=== PATIENT | female | born 1955 | race Hispanic/Latino ===

== ENCOUNTER 2018-03-16 23:15 | Observation (INO) | payer OTHER ==
[2018-03-17 00:25] LABS: Absolute Lymphocytes (CBC) 1.7 K/uL (0.7-4.9); Absolute Monocytes 0.6 K/uL (0.1-1.3); Absolute Neutrophil 3.9 K/uL (1.8-8.0); Basophils % 0.3 % (0-1.3); Eosinophils % 2.9 % (0-4.4); Hematocrit 36.8 % (36.0-45.0); Lymphocytes % 26.3 % (15.3-44.8); MCH 30.1 pg (27.0-35.0); MCV 88.6 fL (80-100); MPV 10.1 fL (7.6-11.3); Monocytes % 9.2 % (3.3-12.3); RBC Red Blood Cell Count 4.16 M/uL (3.86-4.86)
[2018-03-17 00:29] LABS: Protime INR 1.14
[2018-03-17 00:48] LABS: Urine Bacteria <20 /HPF (<20); Urine Culture Reflex Order NOT NEEDED; Urine RBC <5 /HPF (NONE SEEN)
[2018-03-17 00:52] LABS: ALT/SGPT 27 U/L (12-78); AST/SGOT 24 U/L (15-37); Albumin 3.4 g/dL (3.4-5.0); Alkaline Phosphatase 122 U/L (45-117); BUN Blood Urea Nitrogen 14 mg/dL (7-18); Bicarbonate 27 mmol/L (21-32); Bilirubin Direct 0.1 mg/dL (0-0.2); Bilirubin Total 0.4 mg/dL (0.2-1.0); CKMB Creatine Kinase MB 1.9 ng/mL (0.3-3.6); Creatine Phosphokinase 212 U/L (26-192); Glucose Level 148 mg/dL (74-106); Lipase 103 U/L (73-393); Potassium 4.2 mmol/L (3.5-5.1); Protein, Total 7.9 g/dL (6.4-8.2); Sodium Level 138 mmol/L (136-145); Troponin (Emerg Dept Use Only) < 0.02 ng/mL (0.0-0.045)
[2018-03-17 01:42] LABS: Urine Blood TRACE (NEG); Urine Glucose NEGATIVE (NEG); Urine Protein NEGATIVE (NEG); Urine pH 5.5 (5.0-7.0)
[2018-03-17] MEDS ORDERED: ENOXAPARIN 100 MG/ML SYR SQ ONE (01:54)
[2018-03-17] MEDS ORDERED: HYDROCORTISONE SUC 100 MG INJ IV ONE ×2 (02:29→10:20)
[2018-03-17] MEDS ORDERED: ACETAMINOPHEN 500 MG TAB PO PRN (02:29)
[2018-03-17] MEDS ORDERED: ONDANSETRON 4 MG/2 ML VIAL IV PRN (02:29)
[2018-03-17] MEDS ORDERED: MORPHINE 4 MG/ML SYR IV PRN (02:29)
--- NOTE | 2018-03-17 02:32 | ER ---
Nurse's Notes [facility] Name: Sandra Rogers Age: 62 yrs Sex: Female : 1955 Arrival Date: 03/16/2018 Time: 23:15 Bed 30 Private MD: CHARIS MERCADO Diagnosis: Edema, unspecified;Cellulitis of right lower limb;Cellulitis of left lower limb Presentation: 03/16 23:35 Presenting complaint: Patient states: that she had vein surg 2 weeks ago on both her lower legs. Yesterday they started to turn red, warm and are painful. She has also been running fever. Transition of care: patient was not received from another setting of care. Onset of symptoms was March 15, 2018. Risk Assessment: Do you want to hurt yourself or someone else? Patient reports no desire to harm self or others. Initial Sepsis Screen: Does the patient meet any 2 criteria? No. Patient's initial sepsis screen is negative. Does the patient have a suspected source of infection? No. Patient's initial sepsis screen is negative. Care prior to arrival: None. 23:35 Method Of Arrival: Wheelchair 23:35 Acuity: STARR 3 fc Historical: - Allergies: 23:39 No Known Allergies; fc - Home Meds: 23:39 pioglitazone 30 mg oral tab 1 tab once daily [Active]; Kombiglyze XR 5-1,000 mg oral fc TM24 1 tab once daily [Active]; lisinopril 20 mg Oral tab 1 tab twice a day [Active]; levothyroxine 88 mcg tab 1 tab once daily [Active]; gabapentin 100 mg oral cap 1 caps 3 times per day [Active]; - PMHx: 23:39 Diabetes - IDDM; Hypertension; Hypothyroidism; fatty liver; Peripheral Neuropathy; fc - PSHx: 23:39 ; Vein surg; fc - Immunization history:: Last tetanus immunization: unknown, Flu vaccine is not up to date. - Social history:: Smoking status: Patient/guardian denies using tobacco, Patient/guardian denies using alcohol, street drugs. - Ebola Screening: : Patient negative for fever greater than or equal to 101.5 degrees Fahrenheit, and additional compatible Ebola Virus Disease symptoms Patient denies exposure to infectious person Patient denies travel to an Ebola-affected area in the 21 days before illness onset. Screenin:37 Abuse screen: Denies threats or abuse. Nutritional screening: No deficits noted. fc Tuberculosis screening: No symptoms or risk factors identified. Fall Risk None identified. Assessment: 23:45 General: Appears in no apparent distress. comfortable, Behavior is calm, cooperative. mg2 Pain: Complains of pain in both legs Pain does not radiate. Pain currently is 4 out of 10 on a pain scale. Quality of pain is described as aching, Pain began gradually, 1 day ago. Is intermittent. Neuro: Level of Consciousness is awake, alert, obeys commands, Oriented to person, place, time, situation. Cardiovascular: Capillary refill Patient's skin is warm and dry. Respiratory: Airway is patent Respiratory effort is even, unlabored, Respiratory pattern is regular, symmetrical. GI: No signs and/or symptoms were reported involving the gastrointestinal system. : No signs and/or symptoms were reported regarding the genitourinary system. EENT: No signs and/or symptoms were reported regarding the EENT system. Derm: Skin is intact, Skin is red. Musculoskeletal: Circulation, motion, and sensation intact. Swelling present in both legs and ankles. 03/17 01:53 Reassessment: Patient appears in no apparent distress at this time. Patient and/or mg2 family updated on plan of care and expected duration. Pain level reassessed. Patient is alert, oriented x 3, equal unlabored respirations, skin warm/dry/pink. 02:56 Reassessment: Patient appears in no apparent distress at this time. Patient and/or mg2 family updated on plan of care and expected duration. Pain level reassessed. Patient is alert, oriented x 3, equal unlabored respirations, skin warm/dry/pink. 03:02 Reassessment: Patient appears in no apparent distress at this time. Patient and/or cc3 family updated on plan of care and expected duration. Pain level reassessed. Patient is alert, oriented x 3, equal unlabored respirations, skin warm/dry/pink. Received patient from WILY Queen as a case of cellulitis of bilateral lower limbs for admission, awaiting room availability. 03:35 Reassessment: Patient appears in no apparent distress at this time. Patient and/or cc3 family updated on plan of care and expected duration. Pain level reassessed. Patient is alert, oriented x 3, equal unlabored respirations, skin warm/dry/pink. Room assigned to 428, report handed over to WILY Bower. 03:45 Reassessment: Patient left ER for admission vitally stable by wheelchair escorted by RN.cc3 Vital Signs: 03/16 23:35 BP 133 / 71; Pulse 75; Resp 18; Temp 98.8(O); Pulse Ox 97% on R/A; Weight 108.86 kg fc (R); Height 5 ft. 4 in. (162.56 cm) (R); Pain 8/10; 03/17 00:33 Pulse 75; mg2 00:47 BP 125 / 71; Pulse 74; Resp 18; Pulse Ox 100% on R/A; mg2 01:53 BP 155 / 75; Pulse 77; Resp 18; Pulse Ox 100% on R/A; Pain 0/10; mg2 02:45 BP 117 / 54; Pulse 71; Resp 18 S; Pulse Ox 97% on R/A; cc3 03:18 BP 131 / 72; Pulse 73; Resp 18 S; Pulse Ox 97% on R/A; cc3 03/16 23:35 Body Mass Index 41.20 (108.86 kg, 162.56 cm) fc 00:33 right and left pedal pulses by doppler mg2 ED Course: 03/16 23:15 Patient arrived in ED. ds1 23:16 CHARIS MERCADO is Private Physician. ds1 23:20 [facility] cp 23:20 Adolph Guerrero MD is Attending Physician. cp 23:35 Arm band placed on Patient placed in an exam room, on a stretcher. fc 23:37 Triage completed. fc 23:37 Patient has correct armband on for positive identification. Bed in low position. Call fc light in reach. Pulse ox on. NIBP on. 23:37 No provider procedures requiring assistance completed. fc 23:38 Bret Dubon, WILY is Primary Nurse. mg2 23:56 X-ray completed. Portable x-ray completed in exam room. Patient tolerated procedure kw well. 23:57 Chest Single View XRAY In Process Unspecified. EDMS 03/17 00:12 Inserted saline lock: 20 gauge in left antecubital area, using aseptic technique. Blood mg2 collected. 01:39 Notified Nurse Practitioner and/or Physician Estate Conservator of a critical lab result(s), lp1 D-Dimer 1111. 02:30 Antonieta Adame MD is Hospitalizing Provider. cp 03:35 Patient admitted, IV remains in place. cc3 Administered Medications: 01:52 Drug: Lovenox 1 mg/kg Route: Sub-Q; Site: right lower abdomen; mg2 02:36 Follow up: Response: No adverse reaction mg2 Point of Care Testing: Blood Glucose: 00:33 Blood Glucose: 174 mg/dL; mg2 Ranges: Outcome: 02:31 Decision to Hospitalize by Provider. cp 03:35 Admitted to Tele accompanied by nurse, via wheelchair, room 428, with chart, Report cc3 called to WILY Bower 03:35 Condition: stable 03:35 Instructed on the need for admit. 03:50 Patient left the ED. cc3 Signatures: Dispatcher [employer] EDMS Mervat Virgen RN RN fc Sanford, Demi dsBreanne Moncada Laura, RN RN lp1 Adolph Witt PA PA Bret Resendiz RN RN mg2 Bela Shepherd cc3 Corrections: (The following items were deleted from the chart) 03:06 03:02 Reassessment: Patient appears in no apparent distress at this time. Patient cc3 and/or family updated on plan of care and expected duration. Pain level reassessed. Patient is alert, oriented x 3, equal unlabored respirations, skin warm/dry/pink. Received patient from WILY Queen as a case of leg pain and swelling for admission, awaiting room availability. cc3
--- NOTE | 2018-03-17 02:32 | EDPHYS ---
Physician Documentation [facility] Name: Sandra Rogers Age: 62 yrs Sex: Female : 1955 Arrival Date: 03/16/2018 Time: 23:15 Bed 30 Private MD: CHARIS MERCADO ED Physician Adolph Guerrero HPI: 03/16 23:30 This 62 yrs old Female presents to ER via Unassigned with complaints of Leg cp Pain, Leg Swelling. 23:30 The patient presents with pain, that is acute, swelling, tenderness. The complaints cp affect the right lower leg and left lower leg. Onset: The symptoms/episode began/occurred yesterday. 23:30 Associated signs and symptoms: Pertinent positives: calf tenderness, fever, warmth, cp Pertinent negatives numbness, weakness. Treatment prior to arrival includes: no previous treatment. Son who is interpreting reports patient having vein removal surgery with anesthesia 2 weeks in [facility] to bilateral lower legs. Historical: - Allergies: 23:39 No Known Allergies; fc - Home Meds: 23:39 pioglitazone 30 mg oral tab 1 tab once daily [Active]; Kombiglyze XR 5-1,000 mg oral fc TM24 1 tab once daily [Active]; lisinopril 20 mg Oral tab 1 tab twice a day [Active]; levothyroxine 88 mcg tab 1 tab once daily [Active]; gabapentin 100 mg oral cap 1 caps 3 times per day [Active]; - PMHx: 23:39 Diabetes - IDDM; Hypertension; Hypothyroidism; fatty liver; Peripheral Neuropathy; fc - PSHx: 23:39 ; Vein surg; fc - Immunization history:: Last tetanus immunization: unknown, Flu vaccine is not up to date. - Social history:: Smoking status: Patient/guardian denies using tobacco, Patient/guardian denies using alcohol, street drugs. - Ebola Screening: : Patient negative for fever greater than or equal to 101.5 degrees Fahrenheit, and additional compatible Ebola Virus Disease symptoms Patient denies exposure to infectious person Patient denies travel to an Ebola-affected area in the 21 days before illness onset. ROS: 23:35 Constitutional: Negative for body aches, chills, fever, poor PO intake. cp 23:35 Eyes: Negative for injury, pain, redness, and discharge. cp 23:35 Neck: Negative for pain with movement, pain at rest, stiffness, swollen nodes. 23:35 Cardiovascular: Negative for chest pain, palpitations. 23:35 Respiratory: Negative for cough, shortness of breath, wheezing. 23:35 Abdomen/GI: Negative for abdominal pain, nausea, vomiting, and diarrhea, anorexia, black/tarry stool, rectal bleeding. 23:35 Back: Negative for pain at rest, pain with movement, radiated pain. 23:35 : Negative for urinary symptoms. 23:35 MS/extremity: Positive for erythema, pain, swelling, tenderness, warmth, of the right lower leg and left lower leg, Negative for injury or acute deformity, decreased range of motion, paresthesias. 23:35 Neuro: Negative for altered mental status, headache, numbness, syncope, near syncope, weakness. 23:35 All other systems are negative. Exam: 23:45 Head/Face: Normocephalic, atraumatic. cp 23:45 Constitutional: The patient appears in no acute distress, alert, awake, non-diaphoretic, non-toxic, well developed, well nourished, obese. 23:45 Eyes: Periorbital structures: appear normal, Conjunctiva: normal, no exudate, no injection, Sclera: no appreciated abnormality, Lids and lashes: appear normal, bilaterally. 23:45 ENT: External ear(s): are unremarkable, Nose: is normal, Mouth: Lips: moist, Oral mucosa: pink and intact, moist, Posterior pharynx: is normal, airway is patent, no erythema, no exudate, Voice: is normal. 23:45 Neck: ROM/movement: is normal, is supple, without pain, no range of motions limitations, no nuchal rigidity. 23:45 Chest/axilla: Inspection: normal, Palpation: is normal, no crepitus, no tenderness. 23:45 Cardiovascular: Rate: normal, Rhythm: regular, Pulses: Pulses are 2+ in right radial artery, right dorsalis pedis artery, left radial artery and left dorsalis pedis artery. Edema: mild bilateral lower legs, JVD: is not appreciated. 23:45 Respiratory: the patient does not display signs of respiratory distress, Respirations: normal, no use of accessory muscles, no retractions, no splinting, no tachypnea, labored breathing, is not present, Breath sounds: are clear throughout, no decreased breath sounds, no stridor, no wheezing. 23:45 Abdomen/GI: Inspection: obese Bowel sounds: active, all quadrants, Palpation: abdomen is soft and non-tender, in all quadrants, rebound tenderness, is not appreciated, involuntary guarding, is not appreciated. 23:45 Musculoskeletal/extremity: Extremities: grossly normal except: noted in the right lower cp leg and left lower leg: erythema, swelling, tenderness, increased warmth, ROM: intact in all extremities, Pulses: noted to be 2+ in the right dorsalis pedis artery and left dorsalis pedis artery, Calf tenderness, bilaterally, Sensation intact. 23:45 Neuro: Orientation: to person, place \T\ time. Mentation: lucid, able to follow commands, Cerebellar function: is grossly normal, Motor: moves all fours, Sensation: no obvious gross deficits. 03/17 00:25 ECG was reviewed by the Attending Physician. cp Vital Signs: 03/16 23:35 BP 133 / 71; Pulse 75; Resp 18; Temp 98.8(O); Pulse Ox 97% on R/A; Weight 108.86 kg fc (R); Height 5 ft. 4 in. (162.56 cm) (R); Pain 8/10; 03/17 00:33 Pulse 75; mg2 00:47 BP 125 / 71; Pulse 74; Resp 18; Pulse Ox 100% on R/A; mg2 01:53 BP 155 / 75; Pulse 77; Resp 18; Pulse Ox 100% on R/A; Pain 0/10; mg2 02:45 BP 117 / 54; Pulse 71; Resp 18 S; Pulse Ox 97% on R/A; cc3 03:18 BP 131 / 72; Pulse 73; Resp 18 S; Pulse Ox 97% on R/A; cc3 03/16 23:35 Body Mass Index 41.20 (108.86 kg, 162.56 cm) fc 00:33 right and left pedal pulses by doppler mg2 MDM: 03/16 23:20 Patient medically screened. cp 23:30 Differential diagnosis: cellulitis, DVT, abscess, sepsis. cp 03/17 01:49 Data reviewed: vital signs, nurses notes, lab test result(s), EKG, radiologic studies, cp plain films. Physician consultation: Antonieta Adame MD was called at 01:40, was contacted at 01:40, regarding admission, patient's condition, and will see patient in ED. 03/16 23:32 Order name: Basic Metabolic Panel 03/16 23:32 Order name: Blood Culture Adult (2) 03/16 23:32 Order name: CBC with Diff 03/16 23:32 Order name: Ckmb 03/16 23:32 Order name: CPK 03/16 23:32 Order name: Lactate; Complete Time: 01:11 03/16 23:32 Order name: LFT's; Complete Time: 01:11 03/16 23:32 Order name: Lipase; Complete Time: 01:11 03/16 23:32 Order name: Procalcitonin; Complete Time: 01:11 03/16 23:32 Order name: Protime (+inr); Complete Time: 01:41 03/17 00:47 Interpretation: Reviewed. 03/16 23:32 Order name: Ptt, Activated; Complete Time: 01:41 03/16 23:32 Order name: Troponin (emerg Dept Use Only); Complete Time: 01:11 03/16 23:32 Order name: Urine Microscopic Only; Complete Time: 01:11 03/16 23:32 Order name: Basic Metabolic Panel; Complete Time: 01:11 EDNH 03/16 23:32 Order name: Chest Single View XRAY 03/16 23:32 Order name: Accucheck; Complete Time: 00:11 03/16 23:32 Order name: Cardiac monitoring; Complete Time: 00:11 03/16 23:32 Order name: Blood Culture EDNH 03/16 23:32 Order name: CBC with Automated Diff; Complete Time: 00:47 EDMS 03/17 00:47 Interpretation: Normal except: PLT 128. 03/16 23:32 Order name: CKMB Creatine Kinase MB; Complete Time: 01:11 EDNH 03/16 23:32 Order name: Creatine Phosphokinase; Complete Time: 01:11 EDMS 03/17 01:11 Interpretation: Abnormal: CPK 212. 03/17 00:33 Order name: Urine Dipstick--Ancillary (enter results) ms 03/17 01:21 Order name: LAB Add On cp 03/17 01:26 Order name: D-Dimer; Complete Time: 01:41 EDMS 03/17 02:35 Order name: CONS Pharmacy Consult EDMS 03/17 02:35 Order name: CONS Pharmacy Consult EDMS 03/17 02:35 Order name: Consistent Carb (ADA) 1800 Michael EDMS 03/17 02:35 Order name: Extrem Venous W Compress Adiel EDMS 03/16 23:32 Order name: EKG - Nurse/Tech; Complete Time: 00:33 cp 03/16 23:32 Order name: IV Saline Lock - Large Bore; Complete Time: 00:11 cp 03/16 23:32 Order name: Labs collected and sent; Complete Time: 00:11 cp 03/16 23:32 Order name: O2 Per Protocol; Complete Time: 00:11 cp 03/16 23:32 Order name: O2 Sat Monitoring; Complete Time: 00:11 cp 03/16 23:32 Order name: Urine Dipstick-Ancillary (obtain specimen); Complete Time: 00:33 cp 03/16 23:48 Order name: Misc. Order: bilateral lower extremity doppler pulses; Complete Time: 00:33 cp EC:25 Rate is 74 beats/min. Rhythm is regular. OR interval is normal. QRS interval is cp prolonged at 104 msec. QT interval is normal. Interpreted by me. Reviewed by me. Administered Medications: 01:52 Drug: Lovenox 1 mg/kg Route: Sub-Q; Site: right lower abdomen; mg2 02:36 Follow up: Response: No adverse reaction mg2 Point of Care Testing: Blood Glucose: 00:33 Blood Glucose: 174 mg/dL; mg2 Ranges: Critical Glucose Levels:Adult <50 mg/dl or >400 mg/dl <40 mg/dl or >180 mg/dl Disposition: 06:44 Co-signature as Attending Physician, Adolph Guerrero MD I agree with the assessment and [facility] plan of care. Disposition: 03/17/18 02:31 Hospitalization ordered by Antonieta Adame for Observation. Preliminary diagnosis are Edema, unspecified, Cellulitis of right lower limb, Cellulitis of left lower limb. - Bed requested for Telemetry/MedSurg (observation). - Status is Observation. cc3 - Condition is Stable. - Problem is new. - Symptoms have improved. UTI on Admission? No Signatures: Dispatcher [employer] [facility] Larissa Garzon RN RN mw Anderson, Corey, MD MD cha Chretien, Felicia, RN RN fc Adolph Witt PA PA cp Bret Dubon, WILY RN mg2 Bela Shepherd cc3 Corrections: (The following items were deleted from the chart) 01: 01:20 D-DIMER+COAG.LAB.BRZ ordered. EDMS EDMS 03:22 02:31 Hospitalization Ordered by Antonieta Adame MD for Observation. Preliminary mw diagnosis is Edema, unspecified; Cellulitis of right lower limb; Cellulitis of left lower limb. Bed requested for Telemetry/MedSurg (observation). Status is Observation. Condition is Stable. Problem is new. Symptoms have improved. UTI on Admission? No. cp 03:50 03:22 03/17/2018 02:31 Hospitalization Ordered by Antonieta Adame MD for Observation. cc3 Preliminary diagnosis is Edema, unspecified; Cellulitis of right lower limb; Cellulitis of left lower limb. Bed requested for Telemetry/MedSurg (observation). Status is Observation. Condition is Stable. Problem is new. Symptoms have improved. UTI on Admission? No. mw
[2018-03-17] MEDS ORDERED: NA CHLORIDE 0.9% 1,000 ML IV SCH (03:00)
[2018-03-17 04:01] VITALS: O2SAT 97
[2018-03-17] MEDS ORDERED: VANCOMYCIN 1 GM/VIAL ONE (04:56)
[2018-03-17] MEDS ORDERED: NA CHLORIDE 0.9% 500 ML ONE (04:57)
[2018-03-17] MEDS ORDERED: VANCOMYCIN 2 GM in NA CHLORIDE 0.9% 500 ML IVPB SCH (05:00)
[2018-03-17 05:30] VITALS: BMI 39.6
[2018-03-17] MEDS: AMPICILLIN/SULBACT 3 GM in NA CHLORIDE 0.9% 100 ML IVPB SCH ×2 (06:00→11:13)
[2018-03-17] MEDS ORDERED: AMPICILLIN/SULBACTAM 3GM/VIAL ONE (06:11)
[2018-03-17] MEDS ORDERED: NA CHLORIDE 0.9% 100 ML IV ONE (06:50)
--- NOTE | 2018-03-17 07:40 | EKG ---
Test Date: 2018-03-17 Test Time: 00:22:13 Gunstock Repairer: MEASUREMENT RESULTS: Intervals: Rate: 74 OH: 164 QRSD: 104 QT: 374 QTc: 415 [place]: P: 35 OH: 164 QRS: -58 T: 19 INTERPRETIVE STATEMENTS: Normal sinus rhythm Left anterior fascicular block Abnormal ECG Compared to ECG 08/04/2016 10:58:26 No significant changes Electronically Signed On 03-17-18 07:40:05 CDT by Abram Mireles
[2018-03-17] MEDS ORDERED: INFLUENZA VACCINE (for 3y+) 0.5 ML DOSE IMVAC ONE (08:00)
--- NOTE | 2018-03-17 08:36 | P.HP ---
Certification for Inpatient Patient admitted to: Observation With expected LOS: <2 Midnights Patient will require the following post-hospital care: None Practitioner: I am a practitioner with admitting privileges, knowledge of patient current condition, hospital course, and medical plan of care. Services: Services provided to patient in accordance with Admission requirements found in Title 42 Section 412.3 of the Code of Federal Regulations Patient History Date of Service: 03/17/18 Reason for admission: Erythema of the lower extremities History of Present Illness: Patient is a 62-year-old female who presents to the emergency room with bilateral lower extremity erythema. Patient had vein stripping performed a couple of weeks ago. Patient noticed erythema a couple of days ago which is got worse. She came into the emergency room and there was concerned had she had bilateral lower extremity cellulitis versus DVT. Her D-dimer was elevated. Patient will be admitted to the hospital for further evaluation. Allergies No Known Allergies Allergy (Verified 03/17/18 04:03) Home Medications: Levothyroxine [Synthroid*] 88 mcg PO DAILY 10/15/11 Lisinopril 20 mg PO DAILY 10/15/11 Gabapentin [Neurontin*] 1 cap PO TID 03/17/18 Pioglitazone [Actos*] 30 mg PO DAILY 03/17/18 Saxagliptin HCl/Metformin HCl [Kombiglyze Xr 5-1,000 mg Tab] 1 tab PO DAILY 07/04 - Past Medical/Surgical History Diabetic: Yes -: IDDM -: HTN -: Hypothyroidism -: Fatty Liver -: Peripheral Neuropathy -: C Section -: Vein Surgery - Family History Father Family History: Reviewed- Non-Contributory - Social History Smoking Status: Never smoker Alcohol use: No CD- Drugs: No Caffeine use: Yes Place of Residence: Home Review of Systems 10-point ROS is otherwise unremarkable Physical Examination - Vital Signs Temperature: 98 F Blood Pressure: 123/65 Pulse: 74 Respirations: 19 Pulse Ox (%): 98 - Physical Exam General: Alert, In no apparent distress, Oriented x3 HEENT: Atraumatic, PERRLA, Mucous membr. moist/pink, EOMI, Sclerae nonicteric Neck: Supple, 2+ carotid pulse no bruit, No LAD, Without JVD or thyroid abnormality Respiratory: Clear to auscultation bilaterally, Normal air movement Cardiovascular: Regular rate/rhythm, Normal S1 S2, No murmurs Gastrointestinal: Normal bowel sounds, Soft and benign, Non-distended, No tenderness Musculoskeletal: No clubbing, Swelling, Erythema, Tenderness, Warmth Integumentary: No rashes, Tenderness/swelling, Erythema, Warmth Neurological: Normal gait, Normal speech, Normal strength at 5/5 x4 extr, Normal tone, Sensation intact, Cranial nerves 3-12 intact, Normal affect Lymphatics: No axilla or inguinal lymphadenopathy - Studies Laboratory Data (last 24 hrs) 03/17/18 00:00: PT 13.5 H, INR 1.14, APTT 30.3 03/17/18 00:00: WBC 6.4, Hgb 12.5, Hct 36.8, Plt Count 128 L 03/17/18 00:00: Sodium 138, Potassium 4.2, BUN 14, Creatinine 0.60, Glucose 148 H, Total Bilirubin 0.4, AST 24, ALT 27, Alkaline Phosphatase 122 H, Lipase 103 Assessment & Plan - Problems (Diagnosis) (1) Cellulitis Current Visit: Yes Status: Acute (2) Status post vein stripping Current Visit: Yes Status: Acute (3) DVT (deep venous thrombosis) Current Visit: Yes Status: Acute (4) Morbid obesity Current Visit: Yes Status: Acute (5) History of hypothyroidism Current Visit: Yes Status: Acute (6) Fatty liver Current Visit: Yes Status: Acute - Plan Plan: 1. Continue with IV antibiotic 2. Continue with DVT evaluation with venous Doppler 3. Gentle IV hydration 4. Monitor CBC 5. Strict blood sugar monitoring 6. Pain control 7. GI and DVT prophylaxis Discharge Plan: Home Plan to discharge in: Greater than 2 days - Advance Directives Does patient have a Living Will: No Does patient have a Durable POA for Healthcare: No - Code Status/Comfort Care Code Status Assessed: Yes Code Status: Full Code Critical Care: No Time Spent Managing PTS Care (In Minutes): 50
--- NOTE | 2018-03-17 08:47 | RAD REPORT ---
EXAM DESCRIPTION: RAD - Chest Single View - 03/16/2018 11:59 pm CLINICAL HISTORY: swelling bilateral lower legs Chest pain. COMPARISON: Chest Pa And Lat (2 Views) dated 09/15/2016; Chest Single View dated 08/04/2016; CHEST SING LE VIEW dated 10/15/2011; CHEST SINGLE VIEW dated 10/16/2010 FINDINGS: Portable technique limits examination quality. The lungs are underinflated resulting in vascular crowding. The heart is mildly moderately enlarged. No displaced fractures. IMPRESSION: Underinflated lungs resulting in vascular crowding.
[2018-03-17] MEDS ORDERED: HYDROCORTISONE SUC 100 MG INJ IV SCH (09:00)
--- NOTE | 2018-03-17 09:36 | RAD REPORT ---
EXAM DESCRIPTION: US - Extrem Venous W Compress Adiel - 03/17/2018 8:58 am CLINICAL HISTORY: DVT Bilateral leg edema and swelling. COMPARISON: Extremity Venous Uni Ltd dated 08/04/2016 TECHNIQUE: Real-time sonographic interrogation of the left and right lower extremity deep venous sys tems was performed. FINDINGS: Normal compressibility, flow augmentation, phasic flow and spontaneous flow is identified in both the left and right lower extremity deep venous systems. Superficial venous thrombosis is noted in the calf. IMPRESSION: No sonographic evidence of left or right lower extremity deep venous thrombosis. Superficial veins in the calf demonstrate thrombosis.
[2018-03-17 13:21] VITALS: BP 127/69; TEMP 97.5
== END 2018-03-17 13:59 | disposition home or self-care (01) ==
LOC: ER 23:15 → ERHOLD 03-17 02:29 → 4TH 03-17 03:42
PROVIDERS: ADMIT Hospitalist; ATTEND Hospitalist
DX: L03.116 Cellulitis of left lower limb (principal); L03.115 Cellulitis of right lower limb; E11.9 Type 2 diabetes mellitus without complications; I10 Essential (primary) hypertension; E03.9 Hypothyroidism, unspecified; E66.01 Morbid (severe) obesity due to excess calories; Z68.39 Body mass index [BMI] 39.0-39.9, adult; K76.0 Fatty (change of) liver, not elsewhere classified; I82.819 Embolism and thrombosis of superficial veins of unspecified lower extremity; Z23 Encounter for immunization
CPT/HCPCS: 36415; 71045; 80048; 80076; 82550; 82553; 82962 ×4; 83605; 83690; 84145; 84484; 85025; 85379; 85610; 85730; 87040 ×2; 93005; 93970; 96372; 99285; G0008; G0378 ×2; J0295; J1650; J1720 ×2; J7030; Q2035; 81003; 81015

== ENCOUNTER 2018-03-28 14:59 | Observation (INO) | payer OTHER ==
[2018-03-28] MEDS ORDERED: NA CHLORIDE 0.9% 1,000 ML ONE (17:37)
--- NOTE | 2018-03-28 17:46 | RAD REPORT ---
EXAM DESCRIPTION: RAD - Chest Single View - 03/28/2018 5:38 pm CLINICAL HISTORY: SWELLING Chest pain. COMPARISON: Chest Single View dated 03/16/2018; Chest Pa And Lat (2 Views) dated 09/15/2016; Chest Sing le View dated 08/04/2016; CHEST SINGLE VIEW dated 10/15/2011 FINDINGS: Portable technique limits examination quality. Mild linear subsegmental atelectasis is present in the left mid lung. No focal pulmonary infiltrate. The heart is mildly enlarged in size. No displaced fractures. IMPRESSION: No acute intrathoracic process suspected.
[2018-03-28 18:48] LABS: Absolute Lymphocytes (CBC) 0.9 K/uL (0.7-4.9); Absolute Monocytes 0.3 K/uL (0.1-1.3); Absolute Neutrophil 4.7 K/uL (1.8-8.0); Basophils % 0.1 % (0-1.3); Eosinophils % 2.7 % (0-4.4); Hematocrit 35.6 % (36.0-45.0); Lymphocytes % 14.9 % (15.3-44.8); MCH 30.3 pg (27.0-35.0); MCV 88.5 fL (80-100); MPV 9.6 fL (7.6-11.3); Monocytes % 5.4 % (3.3-12.3); RBC Red Blood Cell Count 4.03 M/uL (3.86-4.86)
[2018-03-28 18:52] LABS: Protime INR 1.3
[2018-03-28 19:12] LABS: ALT/SGPT 32 U/L (12-78); AST/SGOT 23 U/L (15-37); Albumin 3.4 g/dL (3.4-5.0); Alkaline Phosphatase 83 U/L (45-117); BUN Blood Urea Nitrogen 7 mg/dL (7-18); Bicarbonate 27 mmol/L (21-32); Bilirubin Direct 0.2 mg/dL (0-0.2); Bilirubin Total 0.7 mg/dL (0.2-1.0); CKMB Creatine Kinase MB 2.4 ng/mL (0.3-3.6); Creatine Phosphokinase 216 U/L (26-192); Glucose Level 94 mg/dL (74-106); Potassium 3.7 mmol/L (3.5-5.1); Protein, Total 7.7 g/dL (6.4-8.2); Sodium Level 134 mmol/L (136-145); Troponin (Emerg Dept Use Only) < 0.02 ng/mL (0.0-0.045)
[2018-03-28 19:21] LABS: Urine Bacteria <20 /HPF (<20); Urine Culture Reflex Order NOT NEEDED; Urine RBC <5 /HPF (NONE SEEN)
[2018-03-28 19:22] LABS: Urine Blood TRACE (NEG); Urine Glucose NEGATIVE (NEG); Urine Protein NEGATIVE (NEG); Urine pH 6.5 (5.0-7.0)
--- NOTE | 2018-03-28 22:28 | ER ---
Nurse's Notes [facility] Name: Sandra Rogers Age: 62 yrs Sex: Female : 1955 Arrival Date: 03/28/2018 Time: 15:05 Bed 15 Private MD: Diagnosis: Cellulitis of right lower limb;Cellulitis of left lower limb Presentation: 03/28 15:20 Presenting complaint: Patient states: Redness and pain to bilateral lower legs that got aj worse yesterday. Patient reports recently being treated for cellulitis in this facility. Patient followed up with "vein doctor" on Saturday. Transition of care: patient was not received from another setting of care. Onset of symptoms was March 28, 2018. Risk Assessment: Do you want to hurt yourself or someone else? Patient reports no desire to harm self or others. Initial Sepsis Screen: Does the patient meet any 2 criteria? No. Patient's initial sepsis screen is negative. Does the patient have a suspected source of infection? No. Patient's initial sepsis screen is negative. Care prior to arrival: None. 15:20 Method Of Arrival: Ambulatory 15:20 Acuity: STARR 3 Triage Assessment: 15:22 Headache History: The patient has had previous headaches and this one is similar to previous episodes. General: Appears in no apparent distress. comfortable, obese, Behavior is calm, cooperative, appropriate for age. Pain: Complains of pain in face, scalp, right leg and left leg. Neuro: Level of Consciousness is awake, alert, obeys commands, Oriented to person, place, time, situation, Appropriate for age. Respiratory: Airway is patent Respiratory effort is even, unlabored, Respiratory pattern is regular, symmetrical. Derm: Skin is intact, is healthy with good turgor, Skin is brown, pink, to bilateral lower legs. 22:47 Pain: Pain currently is 2 out of 10 on a pain scale. Pain began 2-3 days ago. Also ao complains of. Historical: - Allergies: 15:22 No Known Allergies; aj - Home Meds: 15:22 gabapentin 100 mg Oral cap 1 caps 3 times per day [Active]; Kombiglyze XR 5-1,000 mg Oral TM24 1 tab once daily [Active]; levothyroxine 88 mcg tab 1 tab once daily [Active]; lisinopril 20 mg Oral tab 1 tab twice a day [Active]; pioglitazone 30 mg Oral tab 1 tab once daily [Active]; - PMHx: 15:22 Diabetes - IDDM; fatty liver; Hypertension; Hypothyroidism; PERIPHERAL NEUROPATHY; aj - PSHx: 15:22 ; Vein surg; aj - Immunization history:: Adult Immunizations up to date. - Social history:: Smoking status: Patient/guardian denies using tobacco. - Ebola Screening: : Patient negative for fever greater than or equal to 101.5 degrees Fahrenheit, and additional compatible Ebola Virus Disease symptoms Patient denies exposure to infectious person Patient denies travel to an Ebola-affected area in the 21 days before illness onset No symptoms or risks identified at this time. Screenin:48 Abuse screen: Denies threats or abuse. Denies injuries from another. Nutritional bp screening: No deficits noted. Tuberculosis screening: No symptoms or risk factors identified. Fall Risk None identified. Assessment: 16:48 General: Appears in no apparent distress. uncomfortable, Behavior is cooperative, bp appropriate for age, anxious. Pain: Complains of pain in head, right leg and left leg. Neuro: Level of Consciousness is awake, alert, obeys commands, Oriented to person, place, time, situation, Appropriate for age. Cardiovascular: No deficits noted. Respiratory: Airway is patent Respiratory effort is even, unlabored, Respiratory pattern is regular, symmetrical. GI: No signs and/or symptoms were reported involving the gastrointestinal system. : No signs and/or symptoms were reported regarding the genitourinary system. EENT: No deficits noted. Derm: No deficits noted. Musculoskeletal: Circulation, motion, and sensation intact. Range of motion: intact in all extremities, Swelling present in right leg and left leg. 18:06 Reassessment: ALL CURRENT STUDIES IN PROCESS, RESULTS PENDING. bp 19:25 General: Appears in no apparent distress. uncomfortable, Behavior is calm, cooperative, ao appropriate for age. Pain: Complains of pain in legs. Neuro: Level of Consciousness is awake, alert, obeys commands, Oriented to person, place, time, situation, Appropriate for age Moves all extremities. Full function Speech is normal, Facial symmetry appears normal, Pupils are PERRLA. Cardiovascular: Denies chest pain, shortness of breath, Heart tones S1 S2 Capillary refill < 3 seconds Patient's skin is warm and dry. Respiratory: Airway is patent Respiratory effort is even, unlabored, Respiratory pattern is regular, symmetrical, Breath sounds are clear bilaterally. GI: No signs and/or symptoms were reported involving the gastrointestinal system. Abdomen is obese. : No signs and/or symptoms were reported regarding the genitourinary system. EENT: No signs and/or symptoms were reported regarding the EENT system. Derm: Derm: Skin is intact, Skin is pink, warm \\T\\ dry. normal. Musculoskeletal: Swelling present in Bilateral Lower extremities. 20:41 Reassessment: Patient appears in no apparent distress at this time. Patient and/or ao family updated on plan of care and expected duration. Pain level reassessed. Patient to get vancomycin. 21:47 Reassessment: Patient appears in no apparent distress at this time. Patient and/or ao family updated on plan of care and expected duration. Pain level reassessed. Ultrasound at bedside. 22:45 Reassessment: Patient appears in no apparent distress at this time. Patient and/or ao family updated on plan of care and expected duration. Pain level reassessed. Patient to stay in the hospital. Patient agree with POC. 23:47 Reassessment: Patient appears in no apparent distress at this time. Patient and/or ao family updated on plan of care and expected duration. Pain level reassessed. Waiting on admitting orders. 03/29 01:20 Reassessment: Patient appears in no apparent distress at this time. Report called to evi Andersen RN patient o be taken to her room. Vital Signs: 03/28 15:22 BP 97 / 41; Pulse 79; Resp 18; Temp 97.7; Pulse Ox 96% on R/A; Weight 108.86 kg; Height aj 5 ft. 4 in. (162.56 cm); 18:06 BP 102 / 74; Pulse 65; Resp 16; Pulse Ox 100% ; bp 19:25 BP 113 / 76; Pulse 64; Resp 16; Pulse Ox 100% on R/A; Pain 0/10; ao 20:41 BP 114 / 72; Pulse 64; Resp 18; Pulse Ox 98% on R/A; ao 21:47 BP 122 / 73; Pulse 63; Resp 18; Pulse Ox 97% on R/A; ao 22:45 BP 126 / 63; Pulse 69; Resp 16; Pulse Ox 100% on R/A; Pain 0/10; ao 23:47 BP 124 / 63; Pulse 64; Resp 18; Pulse Ox 99% on R/A; Pain 0/10; ao 03/29 01:20 BP 112 / 65; Pulse 72; Resp 18; Pulse Ox 99% on R/A; ao 03/28 15:22 Body Mass Index 41.20 (108.86 kg, 162.56 cm) ED Course: 03/28 15:05 Patient arrived in ED. mr 15:22 Triage completed. aj 15:22 Arm band placed on left wrist. Patient placed in waiting room. aj 16:47 Norris Oden, WILY is Primary Nurse. bp 16:48 Patient has correct armband on for positive identification. Bed in low position. Call bp light in reach. Side rails up X2. 16:49 Adolph Witt PA is PHCP. cp 16:49 Jackson Medina MD is Attending Physician. cp 17:37 X-ray completed. Portable x-ray completed in exam room. Patient tolerated procedure ml well. 17:38 Chest Single View XRAY In Process Unspecified. EDMS 17:39 EKG done, by maintenance mechanic technician. reviewed by Adolph LOVE. sm3 20:31 Bony Rush MD is Attending Physician. cp 22:09 US Extremity Venous W Compression Adiel In Process Unspecified. EDMS 22:28 Antonieta Adame MD is Hospitalizing Provider. cp 03/29 01:37 No provider procedures requiring assistance completed. Patient admitted, IV remains in ao place. Administered Medications: 03/28 18:07 Drug: NS 0.9% 1000 ml Route: IV; Rate: 1 bolus; Site: right antecubital; bp 22:00 Follow up: IV Status: Completed infusion ao 21:00 Drug: vancoMYCIN 1 grams Route: IVPB; Infused Over: 2 hrs; Site: right antecubital; ao 23:20 Follow up: IV Status: Completed infusion; IV Intake: 250ml ao Intake: 23:20 IV: 250ml; Total: 250ml. ao Outcome: 22:28 Decision to Hospitalize by Provider. cp 03/29 01:37 Discharged to home ambulatory. ao Condition: stable Instructed on the need for admit. 01:40 Patient left the ED. ao Signatures: Dispatcher [employer] EDMS Josephine Diaz RN RN aj Rivera, Mary mr Lopez Deepa Adolph Ortega PA PA cp Ortiz, Alex, RN RN ao Peltier, Brian, RN Myla Thurman 3 Corrections: (The following items were deleted from the chart) 03/28 15:23 15:20 Presenting complaint: Patient states: Redness and pain to bilateral lower legs aj that got worse yesterday. Patient reports recently being treated for cellulitis in this facility. Patient did not follow up with PCP seda 17:25 16:48 Musculoskeletal: Circulation, motion, and sensation intact. Range of motion: bp intact in all extremities, bp
--- NOTE | 2018-03-28 22:28 | RAD REPORT ---
EXAM DESCRIPTION: US - Extrem Venous W Compress Adiel - 03/28/2018 10:09 pm CLINICAL HISTORY: erythema;Pain;Swelling Bilateral leg edema and swelling. COMPARISON: Extrem Venous W Compress Adiel dated 03/17/2018 TECHNIQUE: Real-time sonographic interrogation of the left and right lower extremity deep venous sys tems was performed. FINDINGS: Normal compressibility, flow augmentation, phasic flow and spontaneous flow is identified in both the left and right lower extremity deep venous systems. IMPRESSION: No sonographic evidence of left or right lower extremity deep venous thrombosis.
--- NOTE | 2018-03-28 22:29 | EDPHYS ---
Physician Documentation [facility] Name: Sandra Rogers Age: 62 yrs Sex: Female : 1955 Arrival Date: 03/28/2018 Time: 15:05 Bed 15 Private MD: ED Physician Bony Rush HPI: 03/28 17:05 This 62 yrs old Female presents to ER via Ambulatory with complaints of Leg cp Pain, Headache. 17:05 The patient presents with pain. The complaints affect the left lower leg and right cp lower leg. Associated signs and symptoms: Pertinent positives: warmth, erythema. 17:05 Treatment prior to arrival includes: no previous treatment. cp Historical: - Allergies: 15:22 No Known Allergies; aj - Home Meds: 15:22 gabapentin 100 mg Oral cap 1 caps 3 times per day [Active]; Kombiglyze XR 5-1,000 mg aj Oral TM24 1 tab once daily [Active]; levothyroxine 88 mcg tab 1 tab once daily [Active]; lisinopril 20 mg Oral tab 1 tab twice a day [Active]; pioglitazone 30 mg Oral tab 1 tab once daily [Active]; - PMHx: 15:22 Diabetes - IDDM; fatty liver; Hypertension; Hypothyroidism; PERIPHERAL NEUROPATHY; aj - PSHx: 15:22 ; Vein surg; aj - Immunization history:: Adult Immunizations up to date. - Social history:: Smoking status: Patient/guardian denies using tobacco. - Ebola Screening: : Patient negative for fever greater than or equal to 101.5 degrees Fahrenheit, and additional compatible Ebola Virus Disease symptoms Patient denies exposure to infectious person Patient denies travel to an Ebola-affected area in the 21 days before illness onset No symptoms or risks identified at this time. ROS: 17:10 Constitutional: Negative for body aches, chills, fever, poor PO intake. cp 17:10 Eyes: Negative for injury, pain, redness, and discharge. cp 17:10 ENT: Negative for drainage from ear(s), ear pain, sore throat, difficulty swallowing, difficulty handling secretions. 17:10 Cardiovascular: Negative for chest pain, palpitations. 17:10 Respiratory: Negative for cough, shortness of breath, wheezing. 17:10 Abdomen/GI: Negative for abdominal pain, nausea, vomiting, and diarrhea, black/tarry stool, rectal bleeding. 17:10 Back: Negative for pain at rest, pain with movement. 17:10 Skin: Positive for erythema, swelling, of the left lower leg and right lower leg, warmth, Negative for diaphoresis. 17:10 Neuro: Negative for altered mental status, dizziness, headache, weakness. 17:10 All other systems are negative. Exam: 17:15 Constitutional: The patient appears in no acute distress, alert, awake, cp non-diaphoretic, non-toxic, well developed, well nourished. 17:15 Head/Face: Normocephalic, atraumatic. cp 17:15 Eyes: Periorbital structures: appear normal, Conjunctiva: normal, no exudate, no injection, Sclera: no appreciated abnormality, Lids and lashes: appear normal, bilaterally. 17:15 ENT: External ear(s): are unremarkable, Nose: is normal, Mouth: Lips: moist, Oral mucosa: pink and intact, moist, Posterior pharynx: is normal, airway is patent, no erythema, no exudate, Voice: is normal. 17:15 Neck: External neck: is normal, ROM/movement: is normal, is supple, without pain, no range of motions limitations, no meningismus, no nuchal rigidity. 17:15 Chest/axilla: Inspection: normal, Palpation: is normal, no crepitus, no tenderness. 17:15 Cardiovascular: Rate: normal, Rhythm: regular, Pulses: Pulses are 2+ in right radial artery, right dorsalis pedis artery, left radial artery and left dorsalis pedis artery. Edema: mild bilateral lower legs, JVD: is not appreciated. 17:15 Respiratory: the patient does not display signs of respiratory distress, Respirations: normal, no use of accessory muscles, no retractions, no splinting, no tachypnea, labored breathing, is not present, Breath sounds: are clear throughout, no decreased breath sounds, no stridor, no wheezing. 17:15 Abdomen/GI: Inspection: abdomen appears normal, Palpation: abdomen is soft and non-tender, in all quadrants. 17:15 Back: pain, is absent, ROM is normal. 17:15 Skin: cellulitis, that is moderate, well demarcated, on the left lower leg and right lower leg. 17:15 Neuro: Orientation: to person, place \T\ time. Mentation: lucid, able to follow commands, Cerebellar function: is grossly normal, Motor: moves all fours, Sensation: is normal. 17:25 ECG was reviewed by the Attending Physician. cp Vital Signs: 15:22 BP 97 / 41; Pulse 79; Resp 18; Temp 97.7; Pulse Ox 96% on R/A; Weight 108.86 kg; Height aj 5 ft. 4 in. (162.56 cm); 18:06 BP 102 / 74; Pulse 65; Resp 16; Pulse Ox 100% ; bp 19:25 BP 113 / 76; Pulse 64; Resp 16; Pulse Ox 100% on R/A; Pain 0/10; ao 20:41 BP 114 / 72; Pulse 64; Resp 18; Pulse Ox 98% on R/A; ao 21:47 BP 122 / 73; Pulse 63; Resp 18; Pulse Ox 97% on R/A; ao 22:45 BP 126 / 63; Pulse 69; Resp 16; Pulse Ox 100% on R/A; Pain 0/10; ao 23:47 BP 124 / 63; Pulse 64; Resp 18; Pulse Ox 99% on R/A; Pain 0/10; ao 03/29 01:20 BP 112 / 65; Pulse 72; Resp 18; Pulse Ox 99% on R/A; ao 03/28 15:22 Body Mass Index 41.20 (108.86 kg, 162.56 cm) aj MDM: 03/28 16:49 Patient medically screened. cp 19:55 Data reviewed: vital signs, nurses notes, lab test result(s), EKG, radiologic studies, cp plain films. 19:55 Test interpretation: by ED physician or midlevel provider: ECG, plain radiologic cp studies. 03/28 16:59 Order name: Basic Metabolic Panel cp 03/28 16:59 Order name: Blood Culture Adult (2) cp 03/28 16:59 Order name: CBC with Diff; Complete Time: 19:51 cp 03/28 16:59 Order name: Ckmb; Complete Time: 19:22 cp 03/28 16:59 Order name: CPK; Complete Time: 19:22 cp 03/28 16:59 Order name: Lactate; Complete Time: 19:22 cp 03/28 16:59 Order name: LFT's; Complete Time: 19:22 cp 03/28 16:59 Order name: Procalcitonin; Complete Time: 19:22 cp 03/28 19:22 Interpretation: Abnormal: Procalcitonin 0.80. cp 10/ 16:59 Order name: Protime (+inr); Complete Time: 19:51 cp 03/28 16:59 Order name: Ptt, Activated; Complete Time: 19:51 cp 03/28 16:59 Order name: Troponin (emerg Dept Use Only); Complete Time: 19:22 cp 03/28 16:59 Order name: Urine Microscopic Only; Complete Time: 19:22 cp 03/28 16:59 Order name: Basic Metabolic Panel; Complete Time: 19:22 EDMS 03/28 16:59 Order name: Blood Culture EDMS 03/28 16:59 Order name: Chest Single View XRAY; Complete Time: 18:04 cp 03/28 16:59 Order name: Accucheck; Complete Time: 18:07 cp 03/28 16:59 Order name: Cardiac monitoring; Complete Time: 17:18 cp 03/28 16:59 Order name: EKG - Nurse/Tech; Complete Time: 17:18 cp 03/28 16:59 Order name: IV Saline Lock - Large Bore; Complete Time: 18:07 cp 03/28 16:59 Order name: Labs collected and sent; Complete Time: 18:07 cp 03/28 16:59 Order name: O2 Per Protocol; Complete Time: 17:19 cp 03/28 16:59 Order name: O2 Sat Monitoring; Complete Time: 17:19 cp 03/28 16:59 Order name: Urine Dipstick-Ancillary (obtain specimen); Complete Time: 18:08 cp 03/28 17:58 Order name: EKG Electrocardiogram; Complete Time: 18:37 EDMS 03/28 19:04 Order name: Urine Dipstick--Ancillary (enter results); Complete Time: 19:51 ms 03/28 20:03 Order name: US Extremity Venous W Compression Adiel; Complete Time: 22:37 cp 03/28 22:37 Interpretation: Report reviewed. cp EC:25 Rate is 64 beats/min. Rhythm is regular. HI interval is normal. QRS interval is cp prolonged at 114 msec. QT interval is normal. Interpreted by me. Reviewed by me. Administered Medications: 18:07 Drug: NS 0.9% 1000 ml Route: IV; Rate: 1 bolus; Site: right antecubital; bp 22:00 Follow up: IV Status: Completed infusion ao 21:00 Drug: vancoMYCIN 1 grams Route: IVPB; Infused Over: 2 hrs; Site: right antecubital; ao 23:20 Follow up: IV Status: Completed infusion; IV Intake: 250ml ao Disposition: 03/29 14:50 Co-signature as Attending Physician, Bony Rush MD I agree with the assessment and wa plan of care. Disposition: 03/28/18 22:28 Hospitalization ordered by Antonieta Adame for Observation. Preliminary diagnosis are Cellulitis of right lower limb, Cellulitis of left lower limb. - Bed requested for Telemetry/MedSurg (observation). - Status is Observation. ao - Condition is Stable. - Problem is an ongoing problem. - Symptoms have improved. UTI on Admission? No Signatures: Dispatcher [employer] EDMS Larissa Garzon RN RN mw Myers, Amanda, RN RN aj Page, Corey, PA PA cp Ortiz, Alex RN Bony Pascual MD MD wa Peltier, Brian, RN RN bp Corrections: (The following items were deleted from the chart) 03/28 23:14 22:28 Hospitalization Ordered by Antonieta Adame MD for Observation. Preliminary diagnosis is Cellulitis of right lower limb; Cellulitis of left lower limb. Bed requested for Telemetry/MedSurg (observation). Status is Observation. Condition is Stable. Problem is an ongoing problem. Symptoms have improved. UTI on Admission? No. cp 03/29 01:40 03/28 23:14 03/28/2018 22:28 Hospitalization Ordered by Antonieta Adame MD for ao Observation. Preliminary diagnosis is Cellulitis of right lower limb; Cellulitis of left lower limb. Bed requested for Telemetry/MedSurg (observation). Status is Observation. Condition is Stable. Problem is an ongoing problem. Symptoms have improved. UTI on Admission? No. mw
--- NOTE | 2018-03-28 23:28 | EKG ---
Test Date: 2018-03-28 Test Time: 17:21:43 Weight Checker: ALAN MEASUREMENT RESULTS: Intervals: Rate: 64 TX: 164 QRSD: 114 QT: 394 QTc: 406 Mason: P: 42 TX: 164 QRS: -45 T: 23 INTERPRETIVE STATEMENTS: Normal sinus rhythm Left axis Abnormal ECG Compared to ECG 03/17/2018 00:22:13 No significant changes Electronically Signed On 03-28-18 23:27:36 CDT by Abram Mireles
[2018-03-29] MEDS ORDERED: ACETAMINOPHEN 500 MG TAB PO PRN (00:44)
[2018-03-29] MEDS ORDERED: MORPHINE 2 MG/ML SYR IV PRN (00:44)
[2018-03-29] MEDS ORDERED: NA CHLORIDE 0.9% 1,000 ML IV SCH (01:00)
[2018-03-29 01:50] VITALS: BMI 42.9
[2018-03-29 02:51] VITALS: O2SAT 98
[2018-03-29] MEDS ORDERED: HYDROCORTISONE SUC 100 MG INJ IV ONE (03:54)
[2018-03-29] MEDS: NA CHLORIDE 0.9% 1,000 ML IV SCH (04:00)
[2018-03-29] MEDS ORDERED: AMPICILLIN/SULBACT 3 GM in NA CHLORIDE 0.9% 100 ML IVPB SCH ×2 (05:00→06:00)
[2018-03-29] MEDS: AMPICILLIN/SULBACT 3 GM in NA CHLORIDE 0.9% 100 ML IVPB SCH ×3 (05:00→18:01)
[2018-03-29] MEDS ORDERED: AMPICILLIN/SULBACTAM 3GM/VIAL ONE (05:22)
[2018-03-29] MEDS ORDERED: NA CHLORIDE 0.9% 100 ML ONE (05:25)
[2018-03-29] MEDS ORDERED: MORPHINE 4 MG/ML SYR IV PRN (07:18)
[2018-03-29] MEDS: LISINOPRIL 20 MG TAB PO SCH (08:40)
[2018-03-29] MEDS: SAXAGLIPTIN HCL PO SCH (08:41)
[2018-03-29] MEDS: METFORMIN HCL PO SCH (08:41)
[2018-03-29] MEDS ORDERED: PNEUMOCOCCAL VACCINE 0.5 ML IMVAC ONE (09:00)
--- NOTE | 2018-03-29 10:19 | P.HP ---
Certification for Inpatient Patient admitted to: Observation With expected LOS: <2 Midnights Patient will require the following post-hospital care: None Practitioner: I am a practitioner with admitting privileges, knowledge of patient current condition, hospital course, and medical plan of care. Services: Services provided to patient in accordance with Admission requirements found in Title 42 Section 412.3 of the Code of Federal Regulations Patient History Date of Service: 03/28/18 Reason for admission: Bilateral lower extremity erythema History of Present Illness: Patient is a 62yo who was admitted to the hospital with erythema of the lower extremity bilaterally. Patient has venous stripping of the left lower extremity. Since that time patient has been in the hospital twice with erythema of the lower extremity. Patient was admitted a couple weeks ago with similar complaints. At that time Doppler was negative. Patient also followed up with vascular surgery at the [facility] and was found to have no need for further antibiotic therapy. Patient may have had venous eczema. Patient was discharged. Patient returns to our ER with above findings. This could be more inflammatory. Doppler is negative. Patient will get anti-inflammatories and will give 1 dose of antibiotics. But there is no white count or fever. Unlikely to have a cellulitic infection but more likely to have erythema secondary to inflammatory reaction from a non infectious process. Allergies No Known Allergies Allergy (Verified 03/17/18 04:03) Home Medications: Levothyroxine [Synthroid*] 88 mcg PO DAILY 10/15/11 Lisinopril 20 mg PO DAILY 10/15/11 Pioglitazone [Actos*] 30 mg PO DAILY 03/17/18 Saxagliptin HCl/Metformin HCl [Kombiglyze Xr 5-1,000 mg Tab] 1 tab PO DAILY 07/04 - Past Medical/Surgical History Has patient received pneumonia vaccine in the past: Yes Diabetic: Yes -: IDDM -: HTN -: Hypothyroidism -: Fatty Liver -: Peripheral Neuropathy -: C Section -: Vein Surgery - Family History Father Family History: Reviewed- Non-Contributory - Social History Smoking Status: Never smoker Alcohol use: No CD- Drugs: No Caffeine use: Yes Place of Residence: Home Review of Systems 10-point ROS is otherwise unremarkable Physical Examination - Vital Signs Temperature: 97.7 F Blood Pressure: 131/63 Pulse: 76 Respirations: 16 Pulse Ox (%): 96 - Physical Exam General: Alert, In no apparent distress, Oriented x3 HEENT: Atraumatic, PERRLA, Mucous membr. moist/pink, EOMI, Sclerae nonicteric Neck: Supple, 2+ carotid pulse no bruit, No LAD, Without JVD or thyroid abnormality Respiratory: Clear to auscultation bilaterally, Normal air movement Cardiovascular: Regular rate/rhythm, Normal S1 S2 Gastrointestinal: Normal bowel sounds, Soft and benign, Non-distended, No tenderness Musculoskeletal: No tenderness Integumentary: Tenderness/swelling, Erythema Neurological: Normal gait, Normal speech, Normal strength at 5/5 x4 extr, Normal tone, Sensation intact, Normal affect Lymphatics: No axilla or inguinal lymphadenopathy - Studies Laboratory Data (last 24 hrs) 03/28/18 18:00: PT 15.4 H, INR 1.30, APTT 33.7 03/28/18 18:00: WBC 6.1, Hgb 12.2, Hct 35.6 L, Plt Count 127 L 03/28/18 18:00: Sodium 134 L, Potassium 3.7, BUN 7, Creatinine 0.50 L, Glucose 94, Total Bilirubin 0.7, AST 23, ALT 32, Alkaline Phosphatase 83 Assessment & Plan - Problems (Diagnosis) (1) Cellulitis Onset Date: 03/18/18 Current Visit: No Status: Acute (2) Fatty liver Onset Date: 03/18/18 Current Visit: No Status: Acute (3) History of hypothyroidism Current Visit: No Status: Acute (4) Morbid obesity Onset Date: 03/18/18 Current Visit: No Status: Acute (5) Status post vein stripping Onset Date: 03/18/18 Current Visit: No Status: Acute - Plan 1. Continue with IV antibiotic 2. Monitor CBC 3. Continue with anti-inflammatory 4. Pain control 5. GI and DVT prophylaxis Discharge Plan: Home Plan to discharge in: 24 Hours - Advance Directives Does patient have a Living Will: No Does patient have a Durable POA for Healthcare: No - Code Status/Comfort Care Code Status Assessed: Yes Code Status: Full Code Critical Care: No Time Spent Managing PTS Care (In Minutes): 50
--- NOTE | 2018-03-29 11:16 | P.PN ---
Subjective Date of Service: 03/29/18 Chief Complaint: Bilateral lower extremity erythema Patient seen and examined at bedside. in no acute distress. Review of Systems 10-point ROS is otherwise unremarkable Physical Examination - Vital Signs Temperature: 97.7 F Blood Pressure: 131/63 Pulse: 76 Respirations: 16 Pulse Ox (%): 96 - Physical Exam General: Alert, In no apparent distress HEENT: Atraumatic, PERRLA, EOMI Neck: Supple, JVD not distended Respiratory: Clear to auscultation bilaterally, Normal air movement Cardiovascular: Regular rate/rhythm, Normal S1 S2 Gastrointestinal: Normal bowel sounds, No tenderness Musculoskeletal: No tenderness Integumentary: Tenderness/swelling (LE), Erythema Neurological: Normal speech, Normal tone, Normal affect Lymphatics: No axilla or inguinal lymphadenopathy - Studies Laboratory Data (last 24 hrs) 03/28/18 18:00: PT 15.4 H, INR 1.30, APTT 33.7 03/28/18 18:00: WBC 6.1, Hgb 12.2, Hct 35.6 L, Plt Count 127 L 03/28/18 18:00: Sodium 134 L, Potassium 3.7, BUN 7, Creatinine 0.50 L, Glucose 94, Total Bilirubin 0.7, AST 23, ALT 32, Alkaline Phosphatase 83 Medications List Reviewed: Yes Assessment And Plan - Plan Doppler is negative. Patient will get anti-inflammatories and will give 1 dose of antibiotics. But there is no white count or fever. Unlikely to have a cellulitic infection but more likely to have erythema secondary to inflammatory reaction from a non infectious process. 1. Continue with IV antibiotic 2. Continue with anti-inflammatory 3. Pain control Likely discharge tomorrow.
[2018-03-29] MEDS ORDERED: D50W 25 GM/50 ML SYRINGE IV PRN (11:41)
[2018-03-29] MEDS ORDERED: GLUCAGON 1 MG/VIAL IM PRN (11:41)
[2018-03-29] MEDS: INSULIN -REGULAR HUMAN 50 UNIT/0.5 ML ML SQ SCH ×2 (16:30→21:00)
[2018-03-30] MEDS: AMPICILLIN/SULBACT 3 GM in NA CHLORIDE 0.9% 100 ML IVPB SCH ×3 (00:13→12:00)
[2018-03-30] MEDS ORDERED: LEVOTHYROXINE SOD 0.088 MG TAB PO SCH (06:30)
[2018-03-30] MEDS: INSULIN -REGULAR HUMAN 50 UNIT/0.5 ML ML SQ SCH ×2 (07:30→11:30)
[2018-03-30] MEDS: METFORMIN HCL PO SCH (07:51)
[2018-03-30] MEDS: SAXAGLIPTIN HCL PO SCH (07:51)
[2018-03-30] MEDS: LISINOPRIL 20 MG TAB PO SCH (10:23)
[2018-03-30] MEDS: NA CHLORIDE 0.9% 1,000 ML IV SCH (12:31)
[2018-03-30 12:43] VITALS: BP 134/64; TEMP 97.2
--- NOTE | 2018-03-30 17:52 | P.DS ---
Admission Date: 03/28/18 Discharge Date: 03/30/18 Disposition: ROUTINE DISCHARGE Discharge Condition: GOOD Reason for Admission: Bilateral lower extremity erythema Brief History of Present Illness: Patient is a 62yo who was admitted to the hospital with erythema of the lower extremity bilaterally. Patient has venous stripping of the left lower extremity. Since that time patient has been in the hospital twice with erythema of the lower extremity. Patient was admitted a couple weeks ago with similar complaints. At that time Doppler was negative. Patient also followed up with vascular surgery at the [facility] [place] and was found to have no need for further antibiotic therapy. Patient may have had venous eczema. Patient was discharged. Patient returns to our ER with above findings. This could be more inflammatory. Doppler is negative. Patient will get anti-inflammatories and will give 1 dose of antibiotics. But there is no white count or fever. Unlikely to have a cellulitic infection but more likely to have erythema secondary to inflammatory reaction from a non infectious process. Hospital Course: Patient was admitted to the hospital. Venous doppler was again negative. This could be more inflammatory. Doppler is negative. Patient got 1 dose of antibiotics. But there was no white count or fever. Unlikely to have a cellulitic infection but more likely to have erythema secondary to inflammatory reaction from a non infectious process. Dischardged on PO anti inflammatory medications. Vital Signs/Physical Exam: Temp Pulse Resp BP Pulse Ox 97.2 F 68 16 134/64 99 03/30/18 12:00 03/30/18 12:00 03/30/18 12:00 03/30/18 12:00 03/30/18 12:00 General: Alert, In no apparent distress HEENT: Atraumatic, PERRLA, EOMI Neck: Supple, JVD not distended Respiratory: Clear to auscultation bilaterally, Normal air movement Cardiovascular: Regular rate/rhythm, Normal S1 S2 Gastrointestinal: Normal bowel sounds, No tenderness Musculoskeletal: No tenderness, No warmth, Erythema Integumentary: No warmth, Erythema Neurological: Normal speech, Normal tone, Normal affect Lymphatics: No axilla or inguinal lymphadenopathy Laboratory Data at Discharge: WBC 6.1 K/uL (4.3-10.9) 03/28/18 18:00 Hgb 12.2 g/dL (12.0-15.0) 03/28/18 18:00 Hct 35.6 % (36.0-45.0) L 03/28/18 18:00 Plt Count 127 K/uL (152-406) L 03/28/18 18:00 PT 15.4 SECONDS (9.5-12.5) H 03/28/18 18:00 INR 1.30 03/28/18 18:00 APTT 33.7 SECONDS (24.3-36.9) 03/28/18 18:00 Sodium 134 mmol/L (136-145) L 03/28/18 18:00 Potassium 3.7 mmol/L (3.5-5.1) 03/28/18 18:00 BUN 7 mg/dL (7-18) 03/28/18 18:00 Creatinine 0.50 mg/dL (0.55-1.3) L 03/28/18 18:00 Glucose 94 mg/dL (74-106) 03/28/18 18:00 Total Bilirubin 0.7 mg/dL (0.2-1.0) 03/28/18 18:00 AST 23 U/L (15-37) 03/28/18 18:00 ALT 32 U/L (12-78) 03/28/18 18:00 Alkaline Phosphatase 83 U/L (45-117) 03/28/18 18:00 Home Medications: RX: Levothyroxine [Synthroid*] 88 mcg PO DAILY 10/15/11 RX: Lisinopril 20 mg PO DAILY 10/15/11 RX: Pioglitazone [Actos*] 30 mg PO DAILY 03/17/18 RX: Saxagliptin HCl/Metformin HCl [Kombiglyze Xr 5-1,000 mg Tab] 1 tab PO DAILY 03/17/18 Followup: ASHLEY MERCADO [Primary Care Provider] - (Call office to schedule an appointment in 1 week) Time spent managing pt's care (in minutes): 35
== END 2018-03-30 16:35 | disposition home or self-care (01) ==
LOC: ER 14:59 → ERHOLD 22:30 → 2ND 03-29 01:15
PROVIDERS: ADMIT Hospitalist; ATTEND Hospitalist
DX: L53.8 Other specified erythematous conditions (principal); E11.9 Type 2 diabetes mellitus without complications; I10 Essential (primary) hypertension; E03.9 Hypothyroidism, unspecified; Z98.890 Other specified postprocedural states; E66.01 Morbid (severe) obesity due to excess calories; Z68.41 Body mass index [BMI] 40.0-44.9, adult; Z23 Encounter for immunization
CPT/HCPCS: 36415; 71045; 80048; 80076; 82550; 82553; 82962 ×7; 83605; 84145; 84484; 85025; 85610; 85730; 87040 ×2; 90670; 93005; 93970; 96361; 96365; 96366; 99284; G0009; G0378 ×2; J0295 ×3; J1720; J7030 ×2; 81003; 81015; J2270

== ENCOUNTER 2018-09-25 13:58 | Emergency (ER) | payer OTHER ==
--- OUTSIDE RECORDS SUMMARY | 2018-09-25 14:01 | XMS REPORT ---
:1955 Author Organization e[employer] Care Team Providers Name Role Phone Avery Marcos Provider Role Unavailable Allergies No Known Allergies Problems Problem Type Condition Code Onset Dates Condition Status Problem Fatigue, unspecified type R53.83 Active Problem Varicose veins of left lower I83.12 Active extremity with inflammation Problem Chronic obstructive pulmonary J44.9 Active disease, unspecified COPD type Problem Current moderate episode of major F32.1 Active depressive disorder without prior episode Problem Type 2 diabetes mellitus with E11.8 Active complication, without long-term current use of insulin Problem Body mass index (BMI) of 40.1 to Z68.41 Active 44.9 in adult Problem Biliary cirrhosis K74.5 Active Problem Varicose veins of right lower I83.11 Active extremity with inflammation Problem Essential hypertension I10 Active Problem Acquired hypothyroidism E03.9 Active Problem Low back pain, unspecified back pain M54.5 Active laterality, unspecified chronicity, with sciatica presence unspecified Problem Osteoarthritis, unspecified M19.90 Active osteoarthritis type, unspecified site Assessment Type 2 diabetes mellitus with E11.8 Active complication, without long-term current use of insulin Problem Depression, unspecified depression F32.9 Active type Problem Hyperlipidemia, unspecified E78.5 Active hyperlipidemia type Medications Medication Code Code Instructions Start End Status Dosage System Date Date Jentadueto XR [facility] 60158138026 5-1000 MG September Active 1 tablet Orally Once a 2018 with a day meal Kombiglyze XR ND [id number] 5-1000 MG Inactive 1 tablet Orally Once a with day evening meal Results No Known Results Summary Purpose eClinicalWorks Submission
--- NOTE | 2018-09-25 16:26 | RAD REPORT ---
EXAM DESCRIPTION: Sarika Villegas (2 Views)09/25/2018 4:16 pm CLINICAL HISTORY: Shortness of breath COMPARISON: March 2018 FINDINGS: The lungs appear clear of acute infiltrate. The heart is borderline enlarged IMPRESSION: No acute abnormalities displayed
--- NOTE | 2018-09-25 16:44 | RAD REPORT ---
EXAM DESCRIPTION: USExtrem Venous W Compress Bil09/25/2018 4:35 pm CLINICAL HISTORY: Bilateral leg swelling and pain COMPARISON: March 2018 FINDINGS: The common femoral, superficial femoral, popliteal and posterior tibial veins bilaterally are compressible and demonstrate augmentation. Doppler demonstrates good flow. IMPRESSION: No evidence of deep venous thrombosis involving either lower extremity.
[2018-09-25] MEDS ORDERED: ACETAMINOPHEN 500 MG TAB ONE (16:48)
[2018-09-25] MEDS ORDERED: IBUPROFEN 400 MG TAB ONE (17:18)
[2018-09-25 18:11] LABS: BUN Blood Urea Nitrogen 8 mg/dL (7-18); Bicarbonate 26 mmol/L (21-32); Glucose Level 196 mg/dL (74-106); Potassium 3.9 mmol/L (3.5-5.1); Sodium Level 135 mmol/L (136-145)
[2018-09-25 18:25] LABS: Absolute Lymphocytes (CBC) 0.8 K/uL (0.7-4.9); Absolute Monocytes 0.2 K/uL (0.1-1.3); Absolute Neutrophil 6.4 K/uL (1.8-8.0); Basophils % 0.2 % (0-1.3); Eosinophils % 0.4 % (0-4.4); Hematocrit 39.4 % (36.0-45.0); Lymphocytes % 10.6 % (15.3-44.8); MPV 9.7 fL (7.6-11.3); Monocytes % 3.1 % (3.3-12.3); RBC Red Blood Cell Count 4.44 M/uL (3.86-4.86)
[2018-09-25] MEDS ORDERED: CEPHALEXIN 250 MG CAP ONE (18:51)
[2018-09-25] MEDS ORDERED: SMZ./TMP. 800/160 MG TABLET ONE (18:52)
--- NOTE | 2018-09-25 19:00 | ER ---
Nurse's Notes [facility] Name: Sandra Rogers Age: 63 yrs Sex: Female : 1955 Arrival Date: 09/25/2018 Time: 13:59 Bed 27 Private MD: Diagnosis: Cellulitis of left lower limb Presentation: 09/25 14:18 Presenting complaint: Bilateral lower leg pain, swelling, and redness x 3 days. hb Transition of care: patient was not received from another setting of care. Onset of symptoms was September 23, 2018. Risk Assessment: Do you want to hurt yourself or someone else? Patient reports no desire to harm self or others. Care prior to arrival: None. 14:18 Method Of Arrival: Ambulatory hb 14:18 Acuity: STARR 3 hb 18:22 Initial Sepsis Screen: Does the patient meet any 2 criteria? No. Patient's initial mg2 sepsis screen is negative. Does the patient have a suspected source of infection? No. Patient's initial sepsis screen is negative. Historical: - Allergies: 14:20 No Known Allergies; hb - Home Meds: 14:20 gabapentin 100 mg Oral cap 1 caps 3 times per day [Active]; Kombiglyze XR 5-1,000 mg hb Oral TM24 1 tab once daily [Active]; levothyroxine 88 mcg tab 1 tab once daily [Active]; lisinopril 20 mg Oral tab 1 tab twice a day [Active]; pioglitazone 30 mg Oral tab 1 tab once daily [Active]; - PMHx: 14:20 Diabetes - IDDM; fatty liver; Hypertension; Hypothyroidism; PERIPHERAL NEUROPATHY; hb - PSHx: 14:20 Vein surg; ; hb - Immunization history:: Adult Immunizations up to date. - Social history:: Smoking status: unknown. - Family history:: not pertinent. - Ebola Screening: : No symptoms or risks identified at this time. - Hospitalizations: : No recent hospitalization is reported. Screenin:21 Abuse screen: Denies threats or abuse. Denies injuries from another. Nutritional mg2 screening: No deficits noted. Tuberculosis screening: No symptoms or risk factors identified. Fall Risk Gait- Weak (10 pts.). Assessment: 18:19 General: Appears in no apparent distress. comfortable, Behavior is calm, cooperative. mg2 Pain: Complains of pain in left leg and right leg Pain does not radiate. Pain currently is 5 out of 10 on a pain scale. Quality of pain is described as aching, Pain began gradually, 1 day ago. Is intermittent, Alleviated by medications. Neuro: Level of Consciousness is awake, alert, obeys commands, Oriented to person, place, time, situation. Cardiovascular: Capillary refill < 3 seconds Patient's skin is warm and dry. Respiratory: Airway is patent Respiratory effort is even, unlabored, Respiratory pattern is regular, symmetrical. GI: No signs and/or symptoms were reported involving the gastrointestinal system. : No signs and/or symptoms were reported regarding the genitourinary system. EENT: No signs and/or symptoms were reported regarding the EENT system. Derm: Skin is fragile, is thin, Skin is pink, warm \T\ dry. Skin temperature is warm swelling and redness noted in both legs. Musculoskeletal: Circulation, motion, and sensation intact. Capillary refill < 3 seconds, Swelling present in left leg and right leg. 19:17 Reassessment: Patient states feeling better. mg2 Vital Signs: 14:19 BP 149 / 81; Pulse 104; Resp 16; Temp 99.7(TE); Pulse Ox 97% on R/A; Pain 8/10; hb 16:32 Pulse 106; Resp 18; Temp 101(O); Pulse Ox 99% on R/A; mg2 18:30 BP 99 / 53; Pulse 92; Resp 18; Temp 100(O); Pulse Ox 98% on R/A; Pain 2/10; mg2 19:17 BP 122 / 65; Pulse 90; Resp 18; Pulse Ox 100% on R/A; Pain 0/10; mg2 ED Course: 13:59 Patient arrived in ED. tw3 14:19 Triage completed. hb 14:19 Arm band placed on. EKG completed in triage. Results shown to MD. hb 15:44 Bret Dubon, WILY is Primary Nurse. mg2 16:03 Tom Medel MD is Attending Physician. rn 16:06 US Extremity Venous W Compression Adiel In Process Unspecified. EDMS 16:13 Chest Pa And Lat (2 Views) XRAY In Process Unspecified. EDMS 16:16 X-ray completed. Patient tolerated procedure well. Patient taken to ultrasound. via az wheelchair. 16:32 Ultrasound completed. Patient tolerated well. cy 17:36 No provider procedures requiring assistance completed. Inserted saline lock: 20 gauge mg2 in left antecubital area, using aseptic technique. Blood collected. 18:22 Patient has correct armband on for positive identification. Door closed. mg2 19:17 IV discontinued, intact, bleeding controlled, No redness/swelling at site. Pressure mg2 dressing applied. Administered Medications: 17:15 Drug: Tylenol 1000 mg Route: PO; mg2 18:23 Follow up: Response: No adverse reaction; Marked relief of symptoms mg2 17:15 Drug: Motrin 800 mg Route: PO; mg2 18:23 Follow up: Response: No adverse reaction; Temperature is decreased mg2 18:42 Drug: Bactrim (160 mg-800 mg (DS) 1 tablet Route: PO; mg2 18:42 Follow up: Response: No adverse reaction; Medication administered at discharge. mg2 18:42 Drug: KeFLEX 500 mg Route: PO; mg2 18:42 Follow up: Response: No adverse reaction; Medication administered at discharge. mg2 Outcome: 19:00 Discharge ordered by . rn 19:17 Discharged to home ambulatory, with family. mg2 19:17 Condition: stable 19:17 Discharge instructions given to patient, family, Instructed on discharge instructions, follow up and referral plans. medication usage, Demonstrated understanding of instructions, follow-up care, medications, Prescriptions given X 2. 19:28 Patient left the ED. mg2 Signatures: Dispatcher [employer] EDTom Verdin MD MD rn Baxter, Heather, RN RN hb Wade, Arabella tw3 Anmol Fletcher Bret Dubon RN RN mg2 Ju Omer
--- NOTE | 2018-09-25 19:00 | EDPHYS ---
Physician Documentation [facility] Name: Sandra Rogers Age: 63 yrs Sex: Female : 1955 Arrival Date: 09/25/2018 Time: 13:59 Bed 27 Private MD: ED Physician Tom Medel HPI: 09/25 17:58 This 63 yrs old Female presents to ER via Ambulatory with complaints of Leg rn Swelling, Leg Pain. 17:58 The patient presents with pain, a rash. The complaints affect the right leg and left rn leg. Onset: The symptoms/episode began/occurred yesterday. Modifying factors: The symptoms are alleviated by nothing. the symptoms are aggravated by movement. Severity of symptoms: At their worst the symptoms were moderate, in the emergency department the symptoms are unchanged. The patient has not experienced similar symptoms in the past. Reports redness and swelling and pain of both legs, L>R, + fever and chills. . Historical: - Allergies: 14:20 No Known Allergies; hb - Home Meds: 14:20 gabapentin 100 mg Oral cap 1 caps 3 times per day [Active]; Kombiglyze XR 5-1,000 mg hb Oral TM24 1 tab once daily [Active]; levothyroxine 88 mcg tab 1 tab once daily [Active]; lisinopril 20 mg Oral tab 1 tab twice a day [Active]; pioglitazone 30 mg Oral tab 1 tab once daily [Active]; - PMHx: 14:20 Diabetes - IDDM; fatty liver; Hypertension; Hypothyroidism; PERIPHERAL NEUROPATHY; hb - PSHx: 14:20 Vein surg; ; hb - Immunization history:: Adult Immunizations up to date. - Social history:: Smoking status: unknown. - Family history:: not pertinent. - Ebola Screening: : No symptoms or risks identified at this time. - Hospitalizations: : No recent hospitalization is reported. ROS: 17:58 Constitutional: + fever and chills Eyes: Negative for injury, pain, redness, and investigator internal affairs, Cardiovascular: Negative for chest pain, palpitations, and edema, Respiratory: Negative for shortness of breath, cough, wheezing, and pleuritic chest pain, Abdomen/GI: Negative for abdominal pain, nausea, vomiting, diarrhea, and constipation, MS/Extremity: + leg pain Skin: + leg redness and pain Neuro: Negative for headache, weakness, numbness, tingling, and seizure. Exam: 17:58 Constitutional: This is a well developed, well nourished patient who is awake, alert, rn and in no acute distress. Head/Face: Normocephalic, atraumatic. Eyes: Pupils equal round and reactive to light, extra-ocular motions intact. Lids and lashes normal. Conjunctiva and sclera are non-icteric and not injected. Cornea within normal limits. Periorbital areas with no swelling, redness, or edema. ENT: MMM Cardiovascular: tachycardic, regular Abdomen/GI: soft, non-tender Skin: warm, dry, + bilateral erythema L>R with left leg warm and hot with mild tenderness, no fluctuance MS/ Extremity: Pulses equal, no cyanosis. Neurovascular intact. Full, normal range of motion. Neuro: Awake and alert, GCS 15 Vital Signs: 14:19 BP 149 / 81; Pulse 104; Resp 16; Temp 99.7(TE); Pulse Ox 97% on R/A; Pain 8/10; hb 16:32 Pulse 106; Resp 18; Temp 101(O); Pulse Ox 99% on R/A; mg2 18:30 BP 99 / 53; Pulse 92; Resp 18; Temp 100(O); Pulse Ox 98% on R/A; Pain 2/10; mg2 19:17 BP 122 / 65; Pulse 90; Resp 18; Pulse Ox 100% on R/A; Pain 0/10; mg2 MDM: 16:03 Patient medically screened. rn 18:58 Differential diagnosis: cellulitis. Data reviewed: vital signs, nurses notes, lab test rn result(s), radiologic studies, doppler, plain films, and as a result, I will discharge patient. Counseling: I had a detailed discussion with the patient and/or guardian regarding: the historical points, exam findings, and any diagnostic results supporting the discharge/admit diagnosis, lab results, radiology results, the need for outpatient follow up, to return to the emergency department if symptoms worsen or persist or if there are any questions or concerns that arise at home. Response to treatment: the patient's symptoms have mildly improved after treatment, and as a result, I will discharge patient. Special discussion: I discussed with the patient/guardian in detail that at this point there is no indication for admission to the hospital. It is understood, however, that if the symptoms persist or worsen the patient needs to return immediately for re-evaluation. ED course: Pt improved, sleeping comfortably, fever improved, normal wbc and procalcitonin, patient states would prefer to treat at home and will return if worsens. . 09/25 16:44 Order name: CBC with Diff; Complete Time: 18:33 rn 09/25 16:44 Order name: Basic Metabolic Panel; Complete Time: 18:33 rn 09/25 15:38 Order name: Chest Pa And Lat (2 Views) XRAY; Complete Time: 16:39 snw 09/25 15:38 Order name: US Extremity Venous W Compression Adiel; Complete Time: 17:58 snw 09/25 16:44 Order name: Procalcitonin; Complete Time: 18:33 rn 09/25 16:44 Order name: Blood Culture Adult (2) rn 09/25 16:44 Order name: IV Start; Complete Time: 17:36 rn Administered Medications: 17:15 Drug: Tylenol 1000 mg Route: PO; mg2 18:23 Follow up: Response: No adverse reaction; Marked relief of symptoms mg2 17:15 Drug: Motrin 800 mg Route: PO; mg2 18:23 Follow up: Response: No adverse reaction; Temperature is decreased mg2 18:42 Drug: Bactrim (160 mg-800 mg (DS) 1 tablet Route: PO; mg2 18:42 Follow up: Response: No adverse reaction; Medication administered at discharge. mg2 18:42 Drug: KeFLEX 500 mg Route: PO; mg2 18:42 Follow up: Response: No adverse reaction; Medication administered at discharge. mg2 Disposition: 09/25/18 19:00 Discharged to Home. Impression: Cellulitis of left lower limb. - Condition is Stable. - Discharge Instructions: Cellulitis, Adult. - Prescriptions for Keflex 500 mg Oral Capsule - take 1 capsule by ORAL route every 12 hours for 10 days; 20 capsule. Bactrim DS 800- 160 mg Oral Tablet - take 1 tablet by ORAL route every 12 hours for 10 days; 20 tablet. - Medication Reconciliation Form, Thank You Letter, Antibiotic Education, Prescription Opioid Use form. - Follow up: Private Physician; When: As needed; Reason: Recheck today's complaints, Re-evaluation by your physician. - Problem is new. - Symptoms have improved. Signatures: Dispatcher [employer] EDMS Tom Medel MD MD rn Baxter, Heather, RN RN Bret Dubon RN RN mg2 Corrections: (The following items were deleted from the chart) 19:28 19:00 09/25/2018 19:00 Discharged to Home. Impression: Cellulitis of left lower limb. mg2 Condition is Stable. Forms are Medication Reconciliation Form, Thank You Letter, Antibiotic Education, Prescription Opioid Use. Follow up: Private Physician; When: As needed; Reason: Recheck today's complaints, Re-evaluation by your physician. Problem is new. Symptoms have improved. rn
[2018-09-25 19:36] VITALS: TEMP 100
[2018-09-25 19:38] VITALS: BP 122/65; O2SAT 100
== END 2018-09-25 19:28 | disposition home or self-care (01) ==
LOC: ER 13:58
DX: L03.116 Cellulitis of left lower limb (principal); I10 Essential (primary) hypertension; E11.42 Type 2 diabetes mellitus with diabetic polyneuropathy; E03.9 Hypothyroidism, unspecified
CPT/HCPCS: 36415; 71046; 80048; 84145; 85025; 87040; 93970; 99284

== ENCOUNTER 2018-10-14 15:58 | Emergency (ER) | payer OTHER ==
--- OUTSIDE RECORDS SUMMARY | 2018-10-14 16:00 | XMS REPORT ---
[...] Status Dosage System Date Date Jentadueto XR [facility] [id number] 5-1000 MG September Active 1 tablet Orally Once a 2018 with a day meal Kombiglyze XR ND [id number] 5-1000 MG Inactive 1 tablet Orally Once a with day evening meal Results No Known Results Summary Purpose eClinicalWorks Submission
--- NOTE | 2018-10-14 16:28 | EDPHYS ---
Physician Documentation [facility] Name: Sandra Rogers Age: 63 yrs Sex: Female : 1955 Arrival Date: 10/14/2018 Time: 16:00 Bed 20 Private MD: ED Physician Angel Valladares HPI: 10/14 16:15 This 63 yrs old Female presents to ER via Wheelchair with complaints of Leg gs Swelling. 16:15 The patient presents with cellulitis of the right viera. The patient presents with gs cellulitis of the left viera. Description: The affected area is moderate sized, erythematous. Onset: The symptoms/episode began/occurred 3 day(s) ago. Associated signs and symptoms: Pertinent positives: erythema, Pertinent negatives: drainage, fever. Severity of symptoms: At their worst the symptoms were moderate, in the emergency department the symptoms are unchanged. The patient has experienced similar episodes in the past, several times. The patient has been recently seen at the [facility] Emergency Department, a couple of weeks ago. Historical: - Allergies: 16:04 No Known Allergies; tw2 - Home Meds: 16:04 gabapentin 100 mg Oral cap 1 caps 3 times per day [Active]; levothyroxine 88 mcg tab 1 tw2 tab once daily [Active]; Kombiglyze XR 5-1,000 mg Oral TM24 1 tab once daily [Active]; lisinopril 20 mg Oral tab 1 tab twice a day [Active]; pioglitazone 30 mg Oral tab 1 tab once daily [Active]; - PMHx: 16:04 Diabetes - IDDM; fatty liver; Hypertension; Hypothyroidism; PERIPHERAL NEUROPATHY; tw2 - PSHx: 16:04 Vein surg, both legs; ; tw2 - Immunization history:: Adult Immunizations. - Social history:: Smoking status: . - Ebola Screening: : Patient denies travel to an Ebola-affected area in the 21 days before illness onset. ROS: 16:15 All other systems are negative. gs Exam: 16:15 Head/Face: Normocephalic, atraumatic. Eyes: Pupils equal round and reactive to light, gs extra-ocular motions intact. Lids and lashes normal. Conjunctiva and sclera are non-icteric and not injected. Cornea within normal limits. Periorbital areas with no swelling, redness, or edema. ENT: Nares patent. No nasal discharge, no septal abnormalities noted. Tympanic membranes are normal and external auditory canals are clear. Oropharynx with no redness, swelling, or masses, exudates, or evidence of obstruction, uvula midline. Mucous membranes moist. Neck: Trachea midline, no thyromegaly or masses palpated, and no cervical lymphadenopathy. Supple, full range of motion without nuchal rigidity, or vertebral point tenderness. No Meningismus. Chest/axilla: Normal chest wall appearance and motion. Nontender with no deformity. No lesions are appreciated. Cardiovascular: Regular rate and rhythm with a normal S1 and S2. No gallops, murmurs, or rubs. Normal PMI, no JVD. No pulse deficits. Respiratory: Lungs have equal breath sounds bilaterally, clear to auscultation and percussion. No rales, rhonchi or wheezes noted. No increased work of breathing, no retractions or nasal flaring. Abdomen/GI: Soft, non-tender, with normal bowel sounds. No distension or tympany. No guarding or rebound. No evidence of tenderness throughout. Back: No spinal tenderness. No costovertebral tenderness. Full range of motion. Neuro: Awake and alert, GCS 15, oriented to person, place, time, and situation. Cranial nerves II-XII grossly intact. Motor strength 5/5 in all extremities. Sensory grossly intact. Cerebellar exam normal. Normal gait. 16:15 Constitutional: The patient appears alert, awake. 16:15 Musculoskeletal/extremity: Circulation is intact in all extremities. Edema, 1+ to the left midcalf and right midcalf is noted, Sensation intact. 16:15 Skin: cellulitis, that is moderate, on the left viera and right viera, VENOUS CONGESTION. Vital Signs: 16:03 BP 133 / 78; Pulse 73; Resp 17; Temp 98.5(TE); Pulse Ox 97% on R/A; Weight 111.13 kg tw2 (R); Height 5 ft. 5 in. (165.10 cm); Pain 8/10; 16:03 Body Mass Index 40.77 (111.13 kg, 165.10 cm) tw2 MDM: 16:14 Patient medically screened. 16:15 Data reviewed: vital signs, nurses notes, diagnostic data from outside facility. gs Counseling: I had a detailed discussion with the patient and/or guardian regarding: the historical points, exam findings, and any diagnostic results supporting the discharge/admit diagnosis. Administered Medications: No medications were administered Disposition: 10/14/18 16:28 Discharged to Home. Impression: Venous engorgement, bilateral, Cellulitis of left lower limb, Cellulitis of right lower limb. - Condition is Stable. - Discharge Instructions: Cellulitis, Adult. - Prescriptions for Keflex 500 mg Oral Capsule - take 1 capsule by ORAL route every 6 hours for 10 days; 40 capsule. - Medication Reconciliation Form, Thank You Letter, Antibiotic Education, Prescription Opioid Use form. - Follow up: Private Physician; When: 1 - 2 days; Reason: Re-evaluation by your physician. Signatures: Ewa Veras RN RN 2 Angel Valladares MD MD Norris Oden RN RN bp Corrections: (The following items were deleted from the chart) 16:48 16:28 10/14/2018 16:28 Discharged to Home. Impression: Venous engorgement, bilateral; bp Cellulitis of left lower limb; Cellulitis of right lower limb. Condition is Stable. Forms are Medication Reconciliation Form, Thank You Letter, Antibiotic Education, Prescription Opioid Use. Follow up: Private Physician; When: 1 - 2 days; Reason: Re-evaluation by your physician. gs
--- NOTE | 2018-10-14 16:28 | ER ---
Nurse's Notes [facility] Name: Sandra Rogers Age: 63 yrs Sex: Female : 1955 Arrival Date: 10/14/2018 Time: 16:00 Bed 20 Private MD: Diagnosis: Venous engorgement, bilateral;Cellulitis of left lower limb;Cellulitis of right lower limb Presentation: 10/14 16:02 Presenting complaint: Child states: her legs are turning red and they hurt her, from tw2 last night. we dont know why, she was in the ER here 2 weeks ago and she finished her antibiotics for her legs and we were busy and couldn't go to the follow up. Transition of care: patient was not received from another setting of care. Onset of symptoms was October 14, 2018. Risk Assessment: Do you want to hurt yourself or someone else? Patient reports no desire to harm self or others. Initial Sepsis Screen: Does the patient meet any 2 criteria? No. Patient's initial sepsis screen is negative. Does the patient have a suspected source of infection? No. Patient's initial sepsis screen is negative. Care prior to arrival: None. 16:02 Method Of Arrival: Wheelchair tw2 16:02 Acuity: STARR 3 tw2 Triage Assessment: 16:05 General: Appears in no apparent distress. obese, well groomed, Behavior is calm, tw2 cooperative, appropriate for age. Pain: Complains of pain in right leg and left leg. Historical: - Allergies: 16:04 No Known Allergies; tw2 - Home Meds: 16:04 gabapentin 100 mg Oral cap 1 caps 3 times per day [Active]; levothyroxine 88 mcg tab 1 tw2 tab once daily [Active]; Kombiglyze XR 5-1,000 mg Oral TM24 1 tab once daily [Active]; lisinopril 20 mg Oral tab 1 tab twice a day [Active]; pioglitazone 30 mg Oral tab 1 tab once daily [Active]; - PMHx: 16:04 Diabetes - IDDM; fatty liver; Hypertension; Hypothyroidism; PERIPHERAL NEUROPATHY; tw2 - PSHx: 16:04 Vein surg, both legs; ; tw2 - Immunization history:: Adult Immunizations. - Social history:: Smoking status: . - Ebola Screening: : Patient denies travel to an Ebola-affected area in the 21 days before illness onset. Screenin:05 Abuse screen: Denies threats or abuse. Denies injuries from another. Nutritional bp screening: No deficits noted. Tuberculosis screening: No symptoms or risk factors identified. Fall Risk None identified. Assessment: 16:05 General: Appears in no apparent distress. comfortable, obese, Behavior is cooperative, bp appropriate for age, anxious. Pain: Complains of pain in right leg and left leg. Neuro: Level of Consciousness is awake, alert, obeys commands, Oriented to person, place, time, situation, Appropriate for age. Cardiovascular: Rhythm is sinus rhythm. Respiratory: Airway is patent Respiratory effort is even, unlabored, Respiratory pattern is regular, symmetrical. GI: No signs and/or symptoms were reported involving the gastrointestinal system. : No signs and/or symptoms were reported regarding the genitourinary system. EENT: No deficits noted. Derm: No deficits noted. Musculoskeletal: Swelling present in right leg and left leg. 16:46 Reassessment: PT D/C HOME VIA W/C WITH FAMILY, DX WITH CELLULITIS. bp Vital Signs: 16:03 BP 133 / 78; Pulse 73; Resp 17; Temp 98.5(TE); Pulse Ox 97% on R/A; Weight 111.13 kg tw2 (R); Height 5 ft. 5 in. (165.10 cm); Pain 8/10; 16:03 Body Mass Index 40.77 (111.13 kg, 165.10 cm) tw2 ED Course: 16:00 Patient arrived in ED. mr 16:03 Triage completed. tw2 16:05 Angel Valladares MD is Attending Physician. gs 16:05 Arm band placed on. tw2 16:05 Patient has correct armband on for positive identification. Bed in low position. Call bp light in reach. Side rails up X2. Adult w/ patient. 16:35 Norris Oden, WILY is Primary Nurse. bp 16:40 No provider procedures requiring assistance completed. Patient did not have IV access bp during this emergency room visit. Administered Medications: No medications were administered Outcome: 16:28 Discharge ordered by . gs 16:47 Discharged to home via wheelchair, with family. bp 16:47 Condition: stable 16:47 Discharge instructions given to patient, family, Instructed on discharge instructions, follow up and referral plans. medication usage, Demonstrated understanding of instructions, follow-up care, medications, Prescriptions given X 1. 16:48 Patient left the ED. bp Signatures: Miranda Nails Tara, RN RN tw2 Angel Valladares MD MD Norris Oden RN RN bp
[2018-10-14 16:53] VITALS: BP 133/78; TEMP 98.5; O2SAT 97
== END 2018-10-14 16:48 | disposition home or self-care (01) ==
LOC: ER 15:58
DX: L03.116 Cellulitis of left lower limb (principal); L03.115 Cellulitis of right lower limb; I10 Essential (primary) hypertension; E11.42 Type 2 diabetes mellitus with diabetic polyneuropathy; E03.9 Hypothyroidism, unspecified; K76.0 Fatty (change of) liver, not elsewhere classified

== ENCOUNTER 2019-08-09 18:00 | Emergency (ER) | payer OTHER ==
--- OUTSIDE RECORDS SUMMARY | 2019-08-09 18:02 | XMS REPORT ---
:1955 Author Organization eClinical[employer] Care Team Providers Name Role Phone Hemant Avery Provider Role Unavailable Allergies No Known Allergies Problems Problem Type Condition Code Onset Dates Condition Status Problem Fatigue, unspecified type R53.83 Active Problem Varicose veins of left lower I83.12 Active extremity with inflammation Problem Chronic obstructive pulmonary J44.9 Active disease, unspecified COPD type Problem Low back pain, unspecified back pain M54.5 Active laterality, unspecified chronicity, with sciatica presence unspecified Problem Osteoarthritis, unspecified M19.90 Active osteoarthritis type, unspecified site Problem Depression, unspecified depression F32.9 Active type Problem Hyperlipidemia, unspecified E78.5 Active hyperlipidemia type Problem Current moderate episode of major [...] I10 Active Problem Acquired hypothyroidism E03.9 Active Medications No Known Medications Results No Known Results Summary Purpose eClinicalWorks Submission
--- OUTSIDE RECORDS SUMMARY | 2019-08-09 18:02 | XMS REPORT ---
[...] Status Dosage System Date Date Jentadueto XR [facility] 59707838399 5-1000 MG September Active 1 tablet Orally Once a 2018 with a day meal Kombiglyze XR ND 04768428405 5-1000 MG Inactive 1 tablet Orally Once a with day evening meal Results No Known Results Summary Purpose eClinicalWorks Submission
--- OUTSIDE RECORDS SUMMARY | 2019-08-09 18:02 | XMS REPORT ---
:1955 Author Organization [employer] Care Team Providers Name Role Phone Hemant Avery Provider Role Unavailable Allergies, Adverse Reactions, Alerts Substance Reaction Event Type N.K.D.A. Info Not Available Non Drug Allergy Problems Problem Type Condition Code Onset Dates Condition Status Assessment Body mass index (BMI) of 40.1 to Z68.41 Active 44.9 in adult Assessment Fatigue, unspecified type R53.83 Active Problem Acquired hypothyroidism E03.9 Active Assessment Primary osteoarthritis of both knees M17.0 Active Problem Low back pain, unspecified back pain M54.5 Active laterality, unspecified chronicity, with sciatica presence unspecified Assessment Chronic obstructive pulmonary J44.9 Active disease, unspecified COPD type Problem Osteoarthritis, unspecified M19.90 Active osteoarthritis type, unspecified site Problem Hyperlipidemia, unspecified E78.5 Active hyperlipidemia type Problem Depression, unspecified depression F32.9 Active type Problem Primary osteoarthritis of both knees M17.0 Active Problem Body mass index (BMI) of 40.1 to Z68.41 Active 44.9 in adult Assessment Acquired hypothyroidism E03.9 Active Assessment Essential hypertension I10 Active Problem Vitamin D deficiency E55.9 Active Assessment Vitamin D deficiency E55.9 Active Problem Type 2 diabetes mellitus with E11.8 Active complication, without long-term current use of insulin Problem Fatigue, unspecified type R53.83 Active Problem Current moderate episode of major F32.1 Active depressive disorder without prior episode Problem Essential hypertension I10 Active Assessment Type 2 diabetes mellitus with E11.8 Active complication, without long-term current use of insulin Assessment Current moderate episode of major F32.1 Active depressive disorder without prior episode Assessment Hyperlipidemia, unspecified E78.5 Active hyperlipidemia type Problem Varicose veins of right lower I83.11 Active extremity with inflammation Problem Biliary cirrhosis K74.5 Active Problem Chronic obstructive pulmonary J44.9 Active disease, unspecified COPD type Problem Varicose veins of left lower I83.12 Active extremity with inflammation Medications Medication Code Code Instructions Start End Status Dosage System Date Date Albuterol [facility] 43193861231 (2.5 MG/3ML) Active 3 ml by Sulfate 0.083% nebulizer Inhalation as needed Twice daily Levoxyl [facility] 53452996214 88 MCG Orally Active 1 tablet on Once a day an empty stomach in the morning Atorvastatin ND 45000752387 10 MG Orally Active 1 tablet Calcium Once a day Kombiglyze XR [facility] 07120038651 5-1000 MG Inactive 1 tablet Orally Once a with day evening meal Vitamin D3 [facility] 45713008074 91375 UNIT December 23Mar Active 1 capsule Orally Once a 2018 12, week x 12 weeks 2019 Lisinopril [facility] 06175587621 20 MG Orally Active 1 tablet Once a day Jardiance [facility] 08312912552 10 MG Orally Active 1 tablet Once a day Jardiance [facility] 30516857670 25 MG Orally December 23Mar Active 1 tablet Once a day 2018 Jentadueto XR [facility] 28210684592 5-1000 MG Deepti Active 1 tablet Orally Once a 2018 with a meal day Kombiglyze XR [facility] 85820514751 5-1000 MG Active 1 tablet Orally Once a with day evening meal Results Name Result Date Reference Range Unit Abnormality Flag HEMOGLOBIN A1C ----A1C 8.7 [id number] Summary Purpose eClinicalWorks Submission
[2019-08-09] MEDS ORDERED: NA CHLORIDE 0.9% 1,000 ML ONE (19:03)
[2019-08-09 19:04] LABS: Urine Amorphous Sediment TRACE /HPF (NONE SEEN); Urine Bacteria <20 /HPF (<20); Urine Culture Reflex Order NOT NEEDED; Urine RBC NONE SEEN /HPF (NONE SEEN)
[2019-08-09] MEDS ORDERED: INSULIN -REGULAR HUMAN 50 UNIT/0.5 ML ML ONE (19:32)
[2019-08-09 23:26] LABS: Arterial Blood Carboxyhemoglob 1.2 % (0-1.5); Blood Gas Oxyhemoglobin 93.6 % (94-97); Blood O2 Saturation 95.6 % (92-98.5)
--- NOTE | 2019-08-10 00:30 | ER ---
Nurse's Notes [facility] Name: Sandra Rogers Age: 63 yrs Sex: Female : 1955 Arrival Date: 08/09/2019 Time: 18:01 Bed 6 Private MD: Diagnosis: Other specified diabetes mellitus with hyperglycemia;Patient's unintentional underdosing of medication regimen Presentation: 08/09 18:08 Presenting complaint: Child states: Her Blood Sugar at home was 430. Pt Diabetic - ca1 NIDDM. She c/o headaches that why we took her Blood sugar at home. Also, I found out that instead of taking Metformin OD for 2 months instead of the prescribed 2x a day. BGL at triage is 294. Reports taking Metformin [employer]. Transition of care: patient was not received from another setting of care. Onset of symptoms was August 09, 2019. Risk Assessment: Do you want to hurt yourself or someone else? Patient reports no desire to harm self or others. Initial Sepsis Screen: Does the patient meet any 2 criteria? No. Patient's initial sepsis screen is negative. Does the patient have a suspected source of infection? No. Patient's initial sepsis screen is negative. Care prior to arrival: Medication(s) given: Metformin. 18:08 Method Of Arrival: Ambulatory ca1 18:08 Acuity: STARR 3 ca1 Historical: - Allergies: 18:15 No Known Allergies; ca1 - Home Meds: 18:15 levothyroxine 88 mcg tab 1 tab once daily [Active]; lisinopril 20 mg Oral tab 1 tab ca1 twice a day [Active]; metformin 1,000 mg Oral tab 1 tab 2 times per day [Active]; - PMHx: 18:15 Diabetes - IDDM; fatty liver; Hypertension; Hypothyroidism; PERIPHERAL NEUROPATHY; ca1 Diabetes - NIDDM; - PSHx: 18:15 Vein surg, both legs; ; ca1 - Immunization history:: Adult Immunizations up to date, Pneumococcal vaccine is not up to date, Flu vaccine is not up to date. - Coronavirus screen:: The patient has NOT traveled to [place] in the past 14 days. The patient has NOT had contact with known/suspected case of Coronavirus?. - Social history:: Smoking status: Patient denies any tobacco usage or history of. - Ebola Screening: : Patient negative for fever greater than or equal to 101.5 degrees Fahrenheit, and additional compatible Ebola Virus Disease symptoms Patient denies exposure to infectious person Patient denies travel to an Ebola-affected area in the 21 days before illness onset No symptoms or risks identified at this time. Screenin:46 Abuse screen: Denies threats or abuse. Denies injuries from another. Nutritional ph screening: No deficits noted. Tuberculosis screening: No symptoms or risk factors identified. Fall Risk None identified. Assessment: 19:05 General: Appears in no apparent distress. comfortable, Behavior is calm, cooperative, jb4 appropriate for age. Pain: Denies pain. Neuro: Level of Consciousness is awake, alert, obeys commands, Oriented to person, place, time, situation. Cardiovascular: Patient's skin is warm and dry. Respiratory: Airway is patent Respiratory effort is even, unlabored, Respiratory pattern is regular, symmetrical. GI: No signs and/or symptoms were reported involving the gastrointestinal system. : No signs and/or symptoms were reported regarding the genitourinary system. EENT: No signs and/or symptoms were reported regarding the EENT system. Derm: Skin is intact, Skin is pink, warm \T\ dry. Musculoskeletal: Circulation, motion, and sensation intact. Range of motion: intact in all extremities. 19:31 Reassessment: insulin administered. jb4 20:32 Reassessment: Patient appears in no apparent distress at this time. Patient and/or jb4 family updated on plan of care and expected duration. Pain level reassessed. Patient is alert, oriented x 3, equal unlabored respirations, skin warm/dry/pink. 20:38 Reassessment: Patient appears in no apparent distress at this time. Patient and/or jb4 family updated on plan of care and expected duration. Pain level reassessed. Patient is alert, oriented x 3, equal unlabored respirations, skin warm/dry/pink. Pt and family verbalized understanding of d/c and follow up instructions. Ambulated out of ED with steady gait with family. Vital Signs: 18:15 BP 145 / 58; Pulse 65; Resp 18 S; Temp 97.1(O); Pulse Ox 98% on R/A; Weight 108.86 kg ca1 (R); Height 5 ft. 4 in. (162.56 cm) (R); 19:30 BP 116 / 69; Pulse 62; Resp 16; Pulse Ox 97% on R/A; jb4 20:30 BP 129 / 79; Pulse 65; Resp 16; Pulse Ox 100% on R/A; jb4 18:15 Body Mass Index 41.20 (108.86 kg, 162.56 cm) ca1 ED Course: 18:01 Patient arrived in ED. as 18:12 Triage completed. ca1 18:15 Arm band placed on right wrist. ca1 18:19 Stefanie Prajapati F[facility]-C [facility]. snw 18:19 Tom Medel MD is Attending Physician. snw 18:39 Nelida Swift, RN is Primary Nurse. ph 18:43 Urine collected: clean catch specimen, cloudy, citlaly colored. jb1 18:46 Patient has correct armband on for positive identification. Bed in low position. Call ph light in reach. Side rails up X 1. Pulse ox on. NIBP on. Door closed. Noise minimized. Pillow given. 19:09 Primary Nurse role handed off by Nelida Swift RN jb4 19:09 Feliciano Dias, RN is Primary Nurse. jb4 20:38 No provider procedures requiring assistance completed. Patient did not have IV access jb4 during this emergency room visit. Administered Medications: 19:31 Drug: Insulin Regular Human 5 units {Co-Signature: nicholas (Yasmeen Valentino RN).} Route: Sub-Q; jb4 Site: right lower abdomen; 20:30 Follow up: Response: No adverse reaction; Blood sugar is lowered jb4 Outcome: 19:53 Discharge ordered by MD. snw 20:38 Discharged to home ambulatory, with family. jb4 20:38 Condition: stable 20:38 Discharge instructions given to patient, family, Instructed on discharge instructions, follow up and referral plans. Demonstrated understanding of instructions, follow-up care. 20:41 Patient left the ED. jb4 Signatures: Parker Sharma jb1 Stefanie Prajapati FNP-C FNP-Suyapa Pendleton as Nelida Swift, RN RN Felciiano Dias, RN RN jb4 Ade Moreau RN RN ca1 Yasmeen Valentino RN lp1 Corrections: (The following items were deleted from the chart) 20:41 20:30 BP 100 / 60; Pulse 80bpm; Resp 16bpm; Pulse Ox 100% RA; jb4 jb4
--- NOTE | 2019-08-10 00:31 | EDPHYS ---
Physician Documentation [facility] Name: Sandra Rogers Age: 63 yrs Sex: Female : 1955 Arrival Date: 08/09/2019 Time: 18:01 Bed 6 Private MD: ED Physician Tom Medel HPI: 08/09 19:51 This 63 yrs old Female presents to ER via Ambulatory with complaints of High snw Blood Sugar. 19:51 The patient or guardian reports headache that was potentially precipitated by wrong snw dose of medications, with the patient's symptoms witnessed by family. Onset: The symptoms/episode began/occurred suddenly, today. Associated signs and symptoms: Pertinent positives: headache. Current symptoms: In the emergency department the patient's symptoms have resolved. It is unknown whether or not the patient has had similar symptoms in the past. seequintin Cary NP. Pt noted she was supposed to be taking Metformin BID and has only been taking it daily. Historical: - Allergies: 18:15 No Known Allergies; ca1 - Home Meds: 18:15 levothyroxine 88 mcg tab 1 tab once daily [Active]; lisinopril 20 mg Oral tab 1 tab ca1 twice a day [Active]; metformin 1,000 mg Oral tab 1 tab 2 times per day [Active]; - PMHx: 18:15 Diabetes - IDDM; fatty liver; Hypertension; Hypothyroidism; PERIPHERAL NEUROPATHY; ca1 Diabetes - NIDDM; - PSHx: 18:15 Vein surg, both legs; ; ca1 - Immunization history:: Adult Immunizations up to date, Pneumococcal vaccine is not up to date, Flu vaccine is not up to date. - Coronavirus screen:: The patient has NOT traveled to [place] in the past 14 days. The patient has NOT had contact with known/suspected case of Coronavirus?. - Social history:: Smoking status: Patient denies any tobacco usage or history of. - Ebola Screening: : Patient negative for fever greater than or equal to 101.5 degrees Fahrenheit, and additional compatible Ebola Virus Disease symptoms Patient denies exposure to infectious person Patient denies travel to an Ebola-affected area in the 21 days before illness onset No symptoms or risks identified at this time. ROS: 18:33 Eyes: Negative for injury, pain, redness, and discharge, ENT: Negative for injury, snw pain, and discharge, Neck: Negative for injury, pain, and swelling, Cardiovascular: Negative for chest pain, palpitations, and edema, Respiratory: Negative for shortness of breath, cough, wheezing, and pleuritic chest pain, Abdomen/GI: Negative for abdominal pain, nausea, vomiting, diarrhea, and constipation, Back: Negative for injury and pain, : Negative for injury, bleeding, discharge, and swelling, MS/Extremity: Negative for injury and deformity, Skin: Negative for injury, rash, and discoloration. 18:33 Constitutional: Positive for fatigue, headache, high blood sugar. 18:33 Neuro: Positive for headache. Exam: 18:33 Constitutional: This is a well developed, well nourished patient who is awake, alert, snw and in no acute distress. Head/Face: Normocephalic, atraumatic. Eyes: Pupils equal round and reactive to light, extra-ocular motions intact. Lids and lashes normal. Conjunctiva and sclera are non-icteric and not injected. Cornea within normal limits. Periorbital areas with no swelling, redness, or edema. ENT: Nares patent. No nasal discharge, no septal abnormalities noted. Tympanic membranes are normal and external auditory canals are clear. Oropharynx with no redness, swelling, or masses, exudates, or evidence of obstruction, uvula midline. Mucous membranes moist. Neck: Trachea midline, no thyromegaly or masses palpated, and no cervical lymphadenopathy. Supple, full range of motion without nuchal rigidity, or vertebral point tenderness. No Meningismus. Chest/axilla: Normal chest wall appearance and motion. Nontender with no deformity. No lesions are appreciated. Cardiovascular: Regular rate and rhythm with a normal S1 and S2. No gallops, murmurs, or rubs. Normal PMI, no JVD. No pulse deficits. Respiratory: Lungs have equal breath sounds bilaterally, clear to auscultation and percussion. No rales, rhonchi or wheezes noted. No increased work of breathing, no retractions or nasal flaring. Abdomen/GI: Soft, non-tender, with normal bowel sounds. No distension or tympany. No guarding or rebound. No evidence of tenderness throughout. Back: No spinal tenderness. No costovertebral tenderness. Full range of motion. Skin: Warm, dry with normal turgor. Normal color with no rashes, no lesions, and no evidence of cellulitis. MS/ Extremity: Pulses equal, no cyanosis. Neurovascular intact. Full, normal range of motion. Gait waddle like secondary to chronic leg pain Neuro: Awake and alert, GCS 15, oriented to person, place, time, and situation. Cranial nerves II-XII grossly intact. Motor strength 5/5 in all extremities. Sensory grossly intact. Cerebellar exam normal. Normal gait. Psych: Awake, alert, with orientation to person, place and time. Behavior, mood, and affect are within normal limits. Vital Signs: 18:15 BP 145 / 58; Pulse 65; Resp 18 S; Temp 97.1(O); Pulse Ox 98% on R/A; Weight 108.86 kg ca1 (R); Height 5 ft. 4 in. (162.56 cm) (R); 19:30 BP 116 / 69; Pulse 62; Resp 16; Pulse Ox 97% on R/A; jb4 20:30 BP 129 / 79; Pulse 65; Resp 16; Pulse Ox 100% on R/A; jb4 18:15 Body Mass Index 41.20 (108.86 kg, 162.56 cm) ca1 MDM: 18:19 Patient medically screened. snw 19:50 Data reviewed: vital signs, nurses notes. Data interpreted: Pulse oximetry: on room air snw is 97 %. Interpretation: normal. Counseling: I had a detailed discussion with the patient and/or guardian regarding: the historical points, exam findings, and any diagnostic results supporting the discharge/admit diagnosis, lab results, the need for outpatient follow up, to return to the emergency department if symptoms worsen or persist or if there are any questions or concerns that arise at home. Special discussion: Based on the history and exam findings, there is no indication for further emergent testing or inpatient evaluation. I discussed with the patient/guardian the need to see the primary care provider for further evaluation of the symptoms. 08/09 18:30 Order name: Glucose, Ancillary Testing; Complete Time: 18:30 EDMS 08/09 18:40 Order name: Urine Dipstick--Ancillary (enter results) ms 08/09 18:58 Order name: Urine Microscopic Only; Complete Time: 19:09 EDMS 08/09 18:22 Order name: Urine Dipstick-Ancillary (obtain specimen); Complete Time: 18:43 snw 08/09 18:58 Order name: Urine Culture EDMS Administered Medications: 19:31 Drug: Insulin Regular Human 5 units {Co-Signature: ren1 (Yasmeen Valentino RN).} Route: Sub-Q; jb4 Site: right lower abdomen; 20:30 Follow up: Response: No adverse reaction; Blood sugar is lowered jb4 Disposition: 08/09/19 19:53 Discharged to Home. Impression: Other specified diabetes mellitus with hyperglycemia, Patient's unintentional underdosing of medication regimen. - Condition is Stable. - Discharge Instructions: Diabetes and Sick Day Management, Hyperglycemia, Form - Daily Diabetes Record, Diabetes and Exercise. - Medication Reconciliation Form, Thank You Letter, Antibiotic Education, Prescription Opioid Use form. - Follow up: Emergency Department; When: As needed; Reason: Worsening of condition. Follow up: Private Physician; When: 1 - 2 days; Reason: Recheck today's complaints, Continuance of care, Re-evaluation by your physician. Addendum: 08/11/2019 19:04 Co-signature as Attending Physician, Tom Medel MD. r n Signatures: Dispatcher [employer] EDMS VictorinaStefanie wilson, PLEASURE CRAFT SAILOR-C PLEASURE CRAFT SAILOR-Csnw Tom Medel MD MD rn Bryson, James, RN RN jb4 Ade Moreau RN RN ca1 Yasmeen Valentino RN lp1 Corrections: (The following items were deleted from the chart) 08/09 18:36 18:33 Constitutional: This is a well developed, well nourished patient who is awake, snw alert, and in no acute distress. Head/Face: Normocephalic, atraumatic. Eyes: Pupils equal round and reactive to light, extra-ocular motions intact. Lids and lashes normal. Conjunctiva and sclera are non-icteric and not injected. Cornea within normal limits. Periorbital areas with no swelling, redness, or edema. ENT: Nares patent. No nasal discharge, no septal abnormalities noted. Tympanic membranes are normal and external auditory canals are clear. Oropharynx with no redness, swelling, or masses, exudates, or evidence of obstruction, uvula midline. Mucous membranes moist. Neck: Trachea midline, no thyromegaly or masses palpated, and no cervical lymphadenopathy. Supple, full range of motion without nuchal rigidity, or vertebral point tenderness. No Meningismus. Chest/axilla: Normal chest wall appearance and motion. Nontender with no deformity. No lesions are appreciated. Cardiovascular: Regular rate and rhythm with a normal S1 and S2. No gallops, murmurs, or rubs. Normal PMI, no JVD. No pulse deficits. Respiratory: Lungs have equal breath sounds bilaterally, clear to auscultation and percussion. No rales, rhonchi or wheezes noted. No increased work of breathing, no retractions or nasal flaring. Abdomen/GI: Soft, non-tender, with normal bowel sounds. No distension or tympany. No guarding or rebound. No evidence of tenderness throughout. Back: No spinal tenderness. No costovertebral tenderness. Full range of motion. Skin: Warm, dry with normal turgor. Normal color with no rashes, no lesions, and no evidence of cellulitis. MS/ Extremity: Pulses equal, no cyanosis. Neurovascular intact. Full, normal range of motion. Neuro: Awake and alert, GCS 15, oriented to person, place, time, and situation. Cranial nerves II-XII grossly intact. Motor strength 5/5 in all extremities. Sensory grossly intact. Cerebellar exam normal. Normal gait. Psych: Awake, alert, with orientation to person, place and time. Behavior, mood, and affect are within normal limits. snw 20:41 19:53 08/09/2019 19:53 Discharged to Home. Impression: Other specified diabetes jb4 mellitus with hyperglycemia; Patient's unintentional underdosing of medication regimen. Condition is Stable. Forms are Medication Reconciliation Form, Thank You Letter, Antibiotic Education, Prescription Opioid Use. Follow up: Emergency Department; When: As needed; Reason: Worsening of condition. Follow up: Private Physician; When: 1 - 2 days; Reason: Recheck today's complaints, Continuance of care, Re-evaluation by your physician. snw
[2019-08-10 01:23] VITALS: TEMP 97.1
[2019-08-10 01:25] VITALS: BP 129/79; O2SAT 100
[2019-08-10 03:59] LABS: Urine Blood TRACE (NEG); Urine Glucose 3+ (NEG); Urine Protein NEGATIVE (NEG)
== END 2019-08-09 20:41 | disposition home or self-care (01) ==
LOC: ER 18:00
DX: E13.65 Other specified diabetes mellitus with hyperglycemia (principal); T38.3X6A Underdosing of insulin and oral hypoglycemic [antidiabetic] drugs, initial encounter; Z91.128 Patient's intentional underdosing of medication regimen for other reason; I10 Essential (primary) hypertension; E03.9 Hypothyroidism, unspecified; G62.9 Polyneuropathy, unspecified
CPT/HCPCS: 87088; 87086; 82947 ×2; 82805; 96372; 99283; J7030; 81003; 81015

== ENCOUNTER 2021-01-02 14:04 | Observation (INO) | payer OTHER ==
--- OUTSIDE RECORDS SUMMARY | 2021-01-02 14:08 | XMS REPORT | Continuity of Care Document ---
:1955 Author Organization [facility] t Address [address] [place] [address] Care Team Providers Name Role Phone Luis Daniel JUSTIN, Guera Gtz Primary Care Physician [phone] Jewels Rai MD Attending Clinician Romario JULIEN Attending Clinician Unavailable Yogi HURT Attending Clinician Jacquelyn HURT Attending Clinician Jacquelyn HURT Admitting Clinician Payers Payer Name Policy Type Policy Effective Date Expiration Date Sour ce Number MEDICAREMEDICARE PART [id number] 2020 Alistair stoneshruthi Pawel AND 00:00:00 Alevism [id number] [place], [place]ARE [id number] 2020 [id number] Met kyra Aguillon Problems Condition Condition Condition Status Onset Resolution Last Treating Co mments Source Name Details Category Date Date Treatment Clinician Date Fatigue, Fatigue, Problem [facility] - [facility] type [facility] Varicose Varicose Problem [facility] veins of [facility] - left lower left lower Me moria extremity extremity l with with Outpati inflammati inflammati en t on on Clinics Chronic Chronic Problem Active [facility] obstructiv obstructiv Jo kes - e e Memoria pulmonary pulmonary l disease, disease, Outpat i unspecifie unspecifie en t d COPD d COPD Clinics type type Current Current Problem Active [facility] moderate moderate [facility] - episode of episode of Me moria major major l depressive depressive Ou tpati disorder disorder ent without without Clinics prior prior episode episode Type 2 Type [address] [facility] diabetes diabetes [facility] - mellitus mellitus Memori a with with l complicati complicati Ou tpati on, on, ent without without Clinics long-term long-term current current use of use of insulin insulin Body mass Body mass Problem Active [facility] index index Lukes - (BMI) of (BMI) of Memori a 40.1 to 40.1 to l 44.9 in 44.9 [facility] Biliary Biliary Problem Active [facility] cirrhosis cirrhosis Luke s - Memoria l [facility] Clinics Varicose Varicose Problem Active [facility] veins of [facility] - right right Memoria lower lower l extremity extremity Outp ati with with ent inflammati inflammati Cl inics on on Essential Essential Problem Active [facility] hypertensi hypertensi Jo kes - on on [facility] Acquired Acquired Problem Active [facility] hypothyroi hypothyroi Jo kes - dism dism [facility] Low back Low back Problem Active [facility] pain, pain, [facility]ukes - unspecifie unspecifie Me moria d back d back l pain pain Outpati laterality laterality en t , , Clinics unspecifie unspecifie d d chronicity chronicity , with , with sciatica sciatica presence presence unspecifie unspecifie d d Osteoarthr Osteoarthr Problem Active [facility] itis, itis, Lukes - unspecifie unspecifie Me moria d d l osteoarthr osteoarthr Ou tpati itis type, itis type, en t unspecifie unspecifie Cl inics d site d site Depression Depression Problem Active [facility] , , [facility]ukes - unspecifie unspecifie Me moria d d l depression depression Ou tpati type type ent Clinics Hyperlipid Hyperlipid Problem Active [facility] emia, emia, Lukes - unspecifie unspecifie Me moria d d l hyperlipid hyperlipid Ou tpati emia type emia type ent Clinics Primary Primary Problem Active [facility] osteoarthr osteoarthr Jo kes - itis of itis of Memoria both knees both knees l Outpati ent Clinics Vitamin D Vitamin D Problem Active [facility] deficiency deficiency Jo kes - [facility] l [facility] Encounter Encounter Diagnosis Active [facility] for for [facility]ukes - screening screening Demarcus cecil mammogram mammogram l for breast for breast Ou tpati cancer cancer ent Clinics Allergies, Adverse Reactions, Alerts This patient has no known allergies or adverse reactions. Social History Social Habit Start Date Stop Date Quantity Comments Source History SDOH [place] [facility] Alcohol Binge Exposure to Not sure [place] [facility] SARS-CoV-2 (event) History SDOH [place] [facility] Alcohol Std Drinks Tobacco use and 2020-12-12 2020-12-12 Never used [facility] ethodist exposure 00:00:00 00:00:00 Alcohol intake 2020-12-12 2020-12-[address] [facility] thodist 00:00:00 00:00:00 non-drinker (finding) History SDOH 2020-12-12 2020-12-12 1 [place] [facility] Alcohol Frequency 00:00:00 00:00:00 Sex Ass[birth year] At [birth year] [facility] ethodist 00:00:00 00:00:00 Smoking Status Start Date Stop Date Source Never smoker [place] [facility] Medications Ordered Filled Start Stop Current Ordering Indication Dosage Frequency Signature Comments Components Source Medication Medication Date Date Medication? Clinician (SIG) Name Name Vitamin D3 Vitamin D3 2019- No Avery [address] [facility] 12-23 [facility]cos [facility] - 00:00: 00:00 Memoria 00 :00 [facility] ent [facility] Jardiance Jardiance 2019- No Avery [address] [facility] 12-23 Marcos [facility] - 00:00: 00:00 Memoria 00 :00 [facility] ent [facility] Yes Avery [address] [facility] XR XR 4-10 Marcos with a [facility]ukes - 00:00: meal Memoria 00 [facility] ent Clinics Kombiglyze Mikembiglyze Yes Avery [address] [facility] XR XR Marcos with [facility] - evening [facility]oria meal l [facility] Albuterol Albuterol Yes Avery [address] [facility] Sulfate Sulfate Marcos nebulizer [place] es - as needed [facility] l [facility] Levoxyl Levoxyl Yes Avery [address] [facility] Marcos on an [facility]ukes - empty Memoria stomach in l the [facility] Atorvastati Atorvastati Yes Avery [address] [facility] n Calcium n Calcium Marcos Luke s - Memoria l [facility] ent Clinics Lisinopril Lisinopril Yes Avery [address] [facility] [address] Marcos [facility] - Memoria l [facility] ent Clinics Jardiance Jardiance Yes Avery [address] [facility] Marcos [facility] - Memoria l [facility] Clinics Vital Signs Vital Name Observation Time Observation Value Comments Source Systolic blood 2020-12-12 14:02:00 160 mm[Hg] Alecto n [facility] pressure Diastolic blood 2020-12-12 14:02:00 72 mm[Hg] Akshat on [facility] pressure Heart rate 2020-12-12 14:02:00 78 /min Girma Barbosa Respiratory rate 2020-12-12 14:02:00 16 /min Alec Barbosa Oxygen saturation in 2020-12-12 14:02:00 98 /min Girma Barbosa Arterial blood by Pulse oximetry Body temperature 2020-12-12 11:28:37 36.61 Jelena Alec Barbosa Procedures Procedure Date / Time Performing Clinician Source Performed US DUPLEX VENOUS LOWER 2020-12-12 13:00:39 Kary Rai EXTREMITY BILATERAL HC COMPLETE BLD COUNT 2020-12-12 11:56:00 Kary Ria W/AUTO DIFF BASIC METABOLIC PANEL 2020-12-12 11:56:00 Kary Rai B NATRIURETIC PEPTIDE 2020-12-12 11:56:00 Kary Rai TROPONIN 2020-12-12 11:56:00 Kary Rai Pa thodist LACTIC ACID LEVEL, SEPSIS 2020-12-12 11:56:00 Kary Rai - NOW AND REPEAT 2X EVERY 3 HOURS ESTIMATED GFR 2020-12-12 11:56:00 Kary Rai Pa thodist ECG 12-LEAD 2020-12-12 11:45:59 Kary Rai Pa thodist ECG ED PRELIMINARY 2020-12-12 11:42:23 Kennedy Joshua ton [facility] INTERPRETATION Plan of Care Planned Activity Planned Date Details Comments Source Future Scheduled 2021-01-15 INFLUENZA VACCINE Housniecy reyes [facility] Test 00:00:00 [code = INFLUENZA VACCINE] Future Scheduled 2019-09-21 65+ PNEUMOCOCCAL Rayo [facility] Test 00:00:00 VACCINE (1 of 1 - PPSV23) [code = 65+ PNEUMOCOCCAL VACCINE (1 of 1 - PPSV23)] Future Scheduled [address] [facility] thodist Test 00:00:00 SCREENING [code = BREAST CANCER SCREENING] Future Scheduled 2004 COLONOSCOPY SCREENING [place] [facility] Test 00:00:00 [code = COLONOSCOPY SCREENING] Future Scheduled 2004 SHINGLES VACCINES (#1) [place] [facility] Test 00:00:00 [code = SHINGLES VACCINES (#1)] Future Scheduled 1972 Hepatitis C screening [place] [facility] Test 00:00:00 (procedure) [code = 316901638] Future Scheduled 1966 COVID-19 VACCINE (1) Judith ston [facility] Test 00:00:00 [code = COVID-19 VACCINE (1)] Encounters Start End Encounter Admission Attending Care Care Encounter Source Date/Time Date/Time Type Type Clinicians Facility Department ID 2020-12-12 2020-12-12 [facility] [id number] [place] 00:00:00 00:00:00 K[facility] 2020-10-26 2020-10-26 Transition Herb Dossamy [id number] 00:00:00 00:00:00 of Care Kerry Pride [id number] [place] [id number] 2020-10-20 2020-10-25 [facility] Yogi Jayy [facility] [id number] 08:20:00 16:35:00 Encounter Armin Valladares [facility] [id number] [place] [id number] [place] [id number] [facility] 113 ([facility]) 2020-02-09 2020-02-09 [facility] [id number] [facility] 15:48:00 15:48:00 [employer] [facility] 2018-12-23 2018-12-23 [facility] [id number] [facility] 10:45:00 10:45:00 [facility] 2018-12-01 2018-12-01 [facility] [id number] 14:37:00 14:37:00 [employer] [facility] 2018-09-22 2018-09-22 [facility] [id number] 12:01:00 12:01:00 [facility] Tibbie [facility] Results Test Description Test Time Test Comments Results Result Comments Source ECG 12 lead 2020-12-14 15:47:11 Test Item Value Reference Range Interpretation Comme nts Ventricular rate (test code = 253) 89 Atrial rate (test code = 255) 89 OH interval (test code = 266) 148 QRSD interval (test code = 260) 146 QT interval (test code = 264) 398 QTC interval (test code = 265) 484 P axis 1 (test code = 267) 27 QRS axis 1 (test code = 268) -83 T wave axis (test code = 270) 19 EKG impression (test code = 273) Normal sinus rhythm-Right bundle b ranch block-Left anterior fascicular block-^^^ Bifascicular block ^^^-Abnormal ECG-No previous ECGs available- Girma Dalal duplex venous lower [id number] 13:09:41Hm Interface, Radiology Results - 12/12/2020 1:12 PM CDT EXAMINATION: US DUPLEX VENOUS LOWER EXTREMITY BILATERALCLINICAL HISTORY: 65 years Female Bilateral leg edemaCOMPARISON: None.TECHNIQUE: Grayscale, color Doppler, and spectral waveform analysis of the bilateral lower extremity deep venous systems was performed. The bilateral common femoral, superficial femoral, proximal deep femoral, greater saphenous, and popliteal veins were evaluated. The calf vessels were also evaluated.FINDINGS:The bilateral common femoral, superficial femoral, and popliteal veins are compressible. They demonstrate normal venous waveforms and response to augmentation. There is flow in the visualized calf veins. There is no evidence of a popliteal or Carlos's cyst.IMPRESSION:Normal bilateral lower extremity venous Doppler examination. There is no evidence of deep venous thrombosis.[facility] Interpretation - Not an Order 2020-12-12 11:42:23Kennedy Joshua NP 12/12/2020 8:53 [facility] [place] Preliminary Interpretation - Not an OrderPerformed by: Kennedy Joshua NPAuthorized by: Kary Rai MD ECG reviewed by ED Physician in the absence of a kitchen stewardess: yes Rate: ECG rate: 89 ECG rate assessment: normal Rhythm: Rhythm: sinus rhythm Ectopy: Ectopy: none QRS: QRS axis: Normal QRS intervals: NormalT waves: T waves: non-specific and inverted Inverted: III and [id number] findings: Other findings comment: Isidra Barbosa
[2021-01-02 16:40] LABS: Absolute Lymphocytes (CBC) 1.7 K/uL (0.7-4.9); Basophils % 0.4 % (0-1.3); Hematocrit 34.1 % (36.0-45.0); Lymphocytes % 33.3 % (15.3-44.8); MPV 8.6 fL (7.6-11.3); RBC Red Blood Cell Count 3.76 M/uL (3.86-4.86)
[2021-01-02 17:18] LABS: BUN Blood Urea Nitrogen 11 mg/dL (7-18); Bicarbonate 29 mmol/L (21-32); Glucose Level 103 mg/dL (74-106); Sodium Level 140 mmol/L (136-145)
[2021-01-02 17:19] LABS: ALT/SGPT 33 U/L (12-78); Albumin 3.3 g/dL (3.4-5.0); Alkaline Phosphatase 85 U/L (45-117); Bilirubin Direct < 0.1 mg/dL (0-0.2); Bilirubin Total 0.2 mg/dL (0.2-1.0); Protein, Total 7.5 g/dL (6.4-8.2)
[2021-01-02 18:08] LABS: AST/SGOT 38 U/L (15-37); Potassium 4.4 mmol/L (3.5-5.1)
--- NOTE | 2021-01-02 18:12 | RAD REPORT ---
EXAM DESCRIPTION: US - Extremity Venous Uni Ltd - 01/02/2021 5:25 pm CLINICAL HISTORY: Pain;Swelling Leg swelling and edema. COMPARISON: Extrem Venous W Compress Adiel dated 09/25/2018 FINDINGS: Left lower extremity venous system was interrogated with Doppler technique. Normal flow, c ompressibility and augmentation was noted. There is no DVT present. IMPRESSION: No evidence of left lower extremity deep venous thrombosis.
--- NOTE | 2021-01-02 19:10 | EDPHYS ---
Physician Documentation [facility] Name: Sandra Rogers Age: 65 yrs Sex: Female : 1955 Arrival Date: 01/02/2021 Time: 14:10 Bed 13 Private MD: Guera Cary C ED Physician Jackson Medina HPI: 01/02 16:49 This 65 yrs old Female presents to ER via Wheelchair with complaints of Wound jr8 Check - leg. 16:49 Patient presents to ED for recheck of: cellulitis. The affected area is on the left jr8 leg. Previous treatment: The patient was initially treated 4 day(s) ago, Outpatient prescription(s): The patient was given prescription(s) for Bactrim. Progress: The patient reports increased pain, redness. The patient has not experienced similar symptoms in the past. The patient has been recently seen by a physician:. Historical: - Allergies: 14:32 No Known Allergies; ca1 - Home Meds: 16:06 metformin 1,000 mg Oral tab 1 tab 2 times per day [Active]; lisinopril 20 mg Oral tab 1 tr6 tab twice a day [Active]; pioglitazone 45 mg oral tab once daily [Active]; levothyroxine 100 mcg oral cap 1 cap [Active]; semaglutide 3 mg oral tab 1 tab once daily [Active]; sulfamethoxazole-trimethoprim 800-160 mg Oral tab 1 tab every 12 hours [Active]; - PMHx: 14:32 Diabetes - IDDM; Diabetes - NIDDM; fatty liver; Hypertension; Hypothyroidism; ca1 PERIPHERAL NEUROPATHY; - Immunization history:: Pneumococcal vaccine is up to date, Flu vaccine is up to date. - Social history:: Smoking status: Patient denies any tobacco usage or history of. ROS: 16:49 Eyes: Negative for injury, pain, redness, and discharge, ENT: Negative for injury, jr8 pain, and discharge, Neck: Negative for injury, pain, and swelling, Cardiovascular: Negative for chest pain, palpitations, and edema, Respiratory: Negative for shortness of breath, cough, wheezing, and pleuritic chest pain, Abdomen/GI: Negative for abdominal pain, nausea, vomiting, diarrhea, and constipation, Back: Negative for injury and pain, Neuro: Negative for headache, weakness, numbness, tingling, and seizure. 16:49 MS/extremity: Positive for erythema, pain, swelling, tenderness, warmth, of the left leg. Exam: 16:49 Constitutional: This is a well developed, well nourished patient who is awake, alert, jr8 and in no acute distress. Cardiovascular: Regular rate and rhythm with a normal S1 and S2. No gallops, murmurs, or rubs. Normal PMI, no JVD. No pulse deficits. Respiratory: Lungs have equal breath sounds bilaterally, clear to auscultation and percussion. No rales, rhonchi or wheezes noted. No increased work of breathing, no retractions or nasal flaring. Abdomen/GI: Soft, non-tender, with normal bowel sounds. No distension or tympany. No guarding or rebound. No evidence of tenderness throughout. Back: No spinal tenderness. No costovertebral tenderness. Full range of motion. Skin: Warm, dry with normal turgor. Normal color with no rashes, no lesions, and no evidence of cellulitis. Neuro: Awake and alert, GCS 15, oriented to person, place, time, and situation. Cranial nerves II-XII grossly intact. Motor strength 5/5 in all extremities. Sensory grossly intact. Cerebellar exam normal. Normal gait. 16:49 Musculoskeletal/extremity: Extremities: grossly normal except: noted in the left leg: Mild erythema noted from ankle to upper calf. Increased swelling noted when compared to right leg. Moderate pain to palpation present, ROM: intact in all extremities, Circulation is intact in all extremities. Sensation intact. Vital Signs: 14:29 BP 96 / 57; Pulse 72; Resp 18 S; Temp 97.9(O); Pulse Ox 100% on R/A; Weight 108.86 kg ca1 (R); Height 5 ft. 0 in. (152.40 cm) (R); Pain 7/10; 19:37 BP 111 / 63; Pulse 73; Resp 20; Pulse Ox 98% on R/A; ca1 14:29 Body Mass Index 46.87 (108.86 kg, 152.40 cm) ca1 MDM: 15:58 Patient medically screened. [facility] 19:08 Data reviewed: vital signs, nurses notes, lab test result(s), radiologic studies, [facility] ultrasound. Data interpreted: Pulse oximetry: on room air is 100 %. Interpretation: normal. Counseling: I had a detailed discussion with the patient and/or guardian regarding: the historical points, exam findings, and any diagnostic results supporting the discharge/admit diagnosis, lab results, radiology results, the need for further work-up and treatment in the hospital. 01/02 16:16 Order name: CBC with Diff; Complete Time: 17:08 01/02 16:16 Order name: Basic Metabolic Panel; Complete Time: 18:20 01/02 16:16 Order name: Procalcitonin; Complete Time: 17:52 01/02 16:16 Order name: Blood Culture Adult (2) 01/02 16:16 Order name: LFT's; Complete Time: 18:20 01/02 16:16 Order name: US Extremity Venous Unilateral Ltd; Complete Time: 18:20 01/02 16:16 Order name: IV; Complete Time: 16:31 8 Administered Medications: 19:33 Drug: SOLU-Medrol (methylPrednisoLONE) 125 mg Route: IVP; Site: right antecubital; ca1 19:33 Drug: LevaQUIN (levofloxacin) 500 mg Volume: 100 ml; Route: IVPB; Infused Over: 60 ca1 mins; Site: right antecubital; Disposition: 01/03 07:08 Co-signature as Attending Physician, Jackson Medina MD I agree with the assessment and kdr plan of care. Disposition Summary: 01/02/21 19:09 Hospitalization Ordered Hospitalization Status: Observation 8 Provider: Manolo Watson [facility] Condition: Stable jr8 Problem: new jr8 Symptoms: have improved jr8 Bed/Room Type: Standard [facility] Room Assignment: 210(01/02/21 19:52) mw Diagnosis - Cellulitis of left lower limb jr Forms: - Medication Reconciliation Form 8 - SBAR form 8 Signatures: Dispatcher [employer] EDIL Larissa Garzon RN RN mw Rittger, Kevin, MD MD [facility] Torres Brooks PA PA 8 Ade Moreau RN RN ca1 Olivia Macdonald RN RN tr6 Corrections: (The following items were deleted from the chart) 01/02 19:52 19:09 jr8 mw
--- NOTE | 2021-01-02 19:10 | ER ---
Nurse's Notes [facility] Name: Sandra Rogers Age: 65 yrs Sex: Female : 1955 Arrival Date: 01/02/2021 Time: 14:10 Bed 13 Private MD: Guera Cary C Diagnosis: Cellulitis of left lower limb Presentation: 01/02 14:29 Chief complaint: Patient states: Has a been taken antibiotics for 4 weeks for wound ca1 infection on legs, more on the R. Feels like it's not getting better and the medications are not working. Legs are still red, painful and inflamed. Denies fever. Coronavirus screen: Client denies travel out of the [place] in the last 14 days. At this time, the client does not indicate any symptoms associated with coronavirus-19. Ebola Screen: Patient negative for fever greater than or equal to 101.5 degrees Fahrenheit, and additional compatible Ebola Virus Disease symptoms Patient denies exposure to infectious person. Patient denies travel to an Ebola-affected area in the 21 days before illness onset. No symptoms or risks identified at this time. Initial Sepsis Screen: Does the patient meet any 2 criteria? No. Patient's initial sepsis screen is negative. Does the patient have a suspected source of infection? No. Patient's initial sepsis screen is negative. Risk Assessment: Do you want to hurt yourself or someone else? Patient reports no desire to harm self or others. Onset of symptoms was January 02, 2021. 14:29 Method Of Arrival: Wheelchair ca1 14:29 Acuity: STARR 3 ca1 Historical: - Allergies: 14:32 No Known Allergies; ca1 - Home Meds: 16:06 metformin 1,000 mg Oral tab 1 tab 2 times per day [Active]; lisinopril 20 mg Oral tab 1 tr6 tab twice a day [Active]; pioglitazone 45 mg oral tab once daily [Active]; levothyroxine 100 mcg oral cap 1 cap [Active]; semaglutide 3 mg oral tab 1 tab once daily [Active]; sulfamethoxazole-trimethoprim 800-160 mg Oral tab 1 tab every 12 hours [Active]; - PMHx: 14:32 Diabetes - IDDM; Diabetes - NIDDM; fatty liver; Hypertension; Hypothyroidism; ca1 PERIPHERAL NEUROPATHY; - Immunization history:: Pneumococcal vaccine is up to date, Flu vaccine is up to date. - Social history:: Smoking status: Patient denies any tobacco usage or history of. Screenin:08 Abuse screen: Denies threats or abuse. Denies injuries from another. Nutritional tr6 screening: No deficits noted. Tuberculosis screening: No symptoms or risk factors identified. Fall Risk None identified. Assessment: 16:46 General: Appears in no apparent distress. comfortable, Behavior is calm, cooperative, tr6 appropriate for age. Pain: Complains of pain in left leg. Neuro: No deficits noted. Cardiovascular: No deficits noted. Cardiovascular: Reports Edema is 1+ to left ankle, left foot, left toes, right ankle, right foot and right toes. Respiratory: No deficits noted. GI: No deficits noted. : No deficits noted. EENT: No deficits noted. Derm: Skin is red, redness noted on pts left leg. Musculoskeletal: No deficits noted. 21:02 Reassessment: report called to rn. ca1 Vital Signs: 14:29 BP 96 / 57; Pulse 72; Resp 18 S; Temp 97.9(O); Pulse Ox 100% on R/A; Weight 108.86 kg ca1 (R); Height 5 ft. 0 in. (152.40 cm) (R); Pain 7/10; 19:37 BP 111 / 63; Pulse 73; Resp 20; Pulse Ox 98% on R/A; ca1 14:29 Body Mass Index 46.87 (108.86 kg, 152.40 cm) ca1 ED Course: 14:10 Patient arrived in ED. am2 14:11 Guera Cary FNP is Private Physician. am2 14:32 Triage completed. ca1 14:32 Arm band placed on right wrist. ca1 15:57 [facility] jr8 15:57 Jackson Medina MD is Attending Physician. jr8 15:59 Olivia Macdonald, WILY is Primary Nurse. tr6 16:08 Resting quietly. Awaiting ED provider evaluation. tr6 16:08 Patient has correct armband on for positive identification. Placed in gown. Bed in low tr6 position. Call light in reach. Side rails up X 1. Pulse ox on. NIBP on. Door closed. Noise minimized. Visitors limited. Lights dimmed. Moved to private room. Diet: Patient is NPO. 16:08 No provider procedures requiring assistance completed. tr6 16:31 Inserted saline lock: 20 gauge in right antecubital area, using aseptic technique. tr6 Blood collected. Patient maintains SpO2 saturation greater than 95% on room air. 17:25 US Extremity Venous Unilateral Ltd In Process Unspecified. EDMS 19:08 Manolo Watson DO is Hospitalizing Provider. jr8 Administered Medications: 19:33 Drug: SOLU-Medrol (methylPrednisoLONE) 125 mg Route: IVP; Site: right antecubital; ca1 19:33 Drug: LevaQUIN (levofloxacin) 500 mg Volume: 100 ml; Route: IVPB; Infused Over: 60 ca1 mins; Site: right antecubital; Outcome: 19:09 Decision to Hospitalize by Provider. jr8 21:40 Admitted to Tele ca1 21:40 Condition: good 21:40 Patient left the ED. ca1 Signatures: Dispatcher [employer] EDNC Torres Brooks PA PA jr8 Josephine Vang am2 Ade Moreau RN RN ca1 Olivia Macdonald RN RN tr6
--- NOTE | 2021-01-02 19:32 | P.HP ---
Certification for Inpatient Patient admitted to: Observation With expected LOS: <2 Midnights Patient will require the following post-hospital care: None Practitioner: I am a practitioner with admitting privileges, knowledge of patient current condition, hospital course, and medical plan of care. Services: Services provided to patient in accordance with Admission requirements found in Title 42 Section 412.3 of the Code of Federal Regulations Patient History Date of Service: 01/02/21 Primary Care Provider: Erika Cary Reason for admission: LLE cellulitis History of Present Illness: 65-year-old female with history of diabetes mellitus type 2, hypertension, hypothyroidism, hyperlipidemia, venous insufficiency presents emergency department for left lower extremity erythema/edema/pain. Patient reports ongoing worsening erythema/swelling over the course of the last 4 weeks. Patient has been on Bactrim for the last 4 days but it is not improved, ultrasound negative for DVT labs unremarkable. Patient with previous admissions for cellulitis left lower extremity/bilateral lower extremities, possibly related to inflammatory changes. Patient with history of venous stripping. ED provider wishes to admit under observation for erythema/cellulitis left lower extremity with failed outpatient therapy. Patient does not appear septic. Allergies No Known Allergies Allergy (Verified 03/17/18 04:03) Home Medications: Levothyroxine [Synthroid*] 88 mcg PO DAILY 10/15/11 Lisinopril 20 mg PO DAILY 10/15/11 Pioglitazone [Actos*] 30 mg PO DAILY 03/17/18 Saxagliptin HCl/Metformin HCl [Kombiglyze Xr 5-1,000 mg Tab] 1 tab PO DAILY 03/17/18 - Past Medical/Surgical History Diabetic: Yes -: IDDM -: HTN -: Hypothyroidism -: Fatty Liver -: Peripheral Neuropathy -: C Section -: Vein Surgery Psychosocial/ Personal History: Lives at home with family - Social History Smoking Status: Never smoker Alcohol use: No CD- Drugs: No Caffeine use: Yes Place of Residence: Home Review of Systems 10-point ROS is otherwise unremarkable Integumentary: As per HPI Physical Examination - Physical Exam General: Alert, In no apparent distress, Oriented x3, Obese HEENT: Atraumatic, PERRLA, Mucous membr. moist/pink, EOMI, Sclerae nonicteric Neck: Supple, 2+ carotid pulse no bruit, No LAD, Without JVD or thyroid abnormality Respiratory: Clear to auscultation bilaterally, Normal air movement Cardiovascular: Regular rate/rhythm, Normal S1 S2 Gastrointestinal: Normal bowel sounds, No tenderness Musculoskeletal: No tenderness Integumentary: Tenderness/swelling, Erythema, Warmth Neurological: Normal speech, Normal strength at 5/5 x4 extr, Normal tone, Normal affect - Studies Laboratory Data (last 24 hrs) 01/02/21 16:28: Sodium 140, Potassium 4.4, BUN 11, Creatinine 0.70, Glucose 103, Total Bilirubin 0.2, AST 38 H, ALT 33, Alkaline Phosphatase 85 01/02/21 16:28: WBC 5.00, Hgb 11.3 L, Hct 34.1 L, Plt Count 155 Assessment and Plan - Plan Assessment Recurrent cellulitis left lower extremity-failed outpatient antibiotic Diabetes mellitus type 2 Hypertension Hypothyroidism Fatty liver disease Plan Recurrent cellulitis left lower extremity-failed outpatient antibiotic: Continue with IV vancomycin/cefepime. Possibly inflammatory component, will give steroids as well. Will elevate extremity throughout the evening as much as possible. DVT prophylaxis Lovenox 40 mg subcutaneous once daily. Anticipate clinical improvement over the course of the next 24 hr, possible discharge tomorrow. Diabetes mellitus type 2: A.c. HS Accu-Cheks, sliding scale insulin therapy. A1c with morning labs. Hypertension: Continue home medications Hypothyroidism: Continue medication Fatty liver disease : Stable. Discharge Plan: Home Plan to discharge in: 24 Hours - Advance Directives Does patient have a Living Will: No Does patient have a Durable POA for Healthcare: No - Code Status/Comfort Care Code Status Assessed: Yes Critical Care: No Time Spent Managing Pts Care (In Minutes): 55
[2021-01-02] MEDS ORDERED: ONDANSETRON 4 MG/2 ML VIAL IV PRN (21:14)
[2021-01-02] MEDS ORDERED: CEFEPIME 1 GM/VIAL IV SCH (21:14)
[2021-01-02] MEDS: INSULIN -REGULAR HUMAN 50 UNIT/0.5 ML ML SQ SCH (21:14)
[2021-01-02] MEDS ORDERED: VANCOMYCIN/NS 1 gm 1 GM/250 ML BAG IVPB SCH (21:14)
[2021-01-02] MEDS ORDERED: ACETAMINOPHEN 500 MG TAB PO PRN (21:14)
[2021-01-02] MEDS: CEFEPIME/SWI 1gm 10 ML IV SCH (21:30)
[2021-01-02] MEDS ORDERED: VANCOMYCIN 2 GM in NA CHLORIDE 0.9% 500 ML IVPB SCH (22:00)
[2021-01-02 22:08] LABS: Urine Appearance CLEAR (Clear); Urine Bilirubin NEGATIVE (Negative); Urine Blood NEGATIVE (Negative); Urine Color YELLOW (Yellow); Urine Glucose NEGATIVE (Negative); Urine Protein NEGATIVE (Negative); Urine Urobilinogen 0.2 mg/dL (0.2-1.0); Urine pH 6.5 (5.0-7.0)
[2021-01-02 22:10] LABS: Urine Microscopic Reflex NO UMIC
[2021-01-02 23:54] VITALS: BMI 46.8
[2021-01-03] MEDS ORDERED: CEFEPIME/SWI 1gm 10 ML ONE (00:25)
[2021-01-03 04:28] LABS: Absolute Lymphocytes (CBC) 0.8 K/uL (0.7-4.9); Basophils % 0.1 % (0-1.3); Hematocrit 34.6 % (36.0-45.0); Lymphocytes % 16.7 % (15.3-44.8); MPV 8.9 fL (7.6-11.3); RBC Red Blood Cell Count 3.81 M/uL (3.86-4.86)
[2021-01-03 04:44] LABS: ALT/SGPT 32 U/L (12-78); AST/SGOT 30 U/L (15-37); Albumin 3.1 g/dL (3.4-5.0); Alkaline Phosphatase 80 U/L (45-117); BUN Blood Urea Nitrogen 11 mg/dL (7-18); Bicarbonate 26 mmol/L (21-32); Bilirubin Total 0.2 mg/dL (0.2-1.0); Glucose Level 230 mg/dL (74-106); HDL Cholesterol 59 mg/dL (40-60); LDL Cholesterol, Calculated 97 (<130); Magnesium 1.8 mg/dL (1.8-2.4); Protein, Total 7.2 g/dL (6.4-8.2); Sodium Level 141 mmol/L (136-145); Thyroid Stimulating Hormone 0.145 uIU/mL (0.360-3.740)
--- NOTE | 2021-01-03 06:05 | P.DS ---
Admission Date: 01/02/21 Discharge Date: 01/03/21 Primary Care Provider: Erika Mercado NP Disposition: ROUTINE DISCHARGE Discharge Condition: GOOD Reason for Admission: LLE cellulitis Consultations: None Procedures: Venous doppler: COMPARISON: Extrem Venous W Compress Adiel dated 09/25/2018 FINDINGS: Left lower extremity venous system was interrogated with Doppler technique. Normal flow, compressibility and augmentation was noted. There is no DVT present. IMPRESSION: No evidence of left lower extremity deep venous thrombosis. Medical Problem List: Recurrent cellulitis left lower extremity likely inflammatory Diabetes mellitus type 2 Hypertension Hypothyroidism Fatty liver disease Obesity, BMI 46.9 Brief History of Present Illness: 65-year-old female with history of diabetes, hypertension, hypothyroidism, fatty liver and obesity. Patient presented with erythema to the left lower extremity. This has occurred over the past 4 weeks. Patient had been on Bactrim for 4 days without any improvement. Patient came to the ER for further evaluation. Venous Doppler showed no DVT. Patient was admitted for further evaluation and treatment. Hospital Course: Patient was admitted for further evaluation and treatment of recurrent left lower extremity cellulitis. The patient was started on IV antibiotics. There was some question of inflammatory process. Patient was also given steroids. Patient has significantly improved with treatment. Patient previously on Bactrim. Venous Doppler shows no DVT. Procalcitonin negative. Patient stable for discharge. At discharge patient will continue with Augmentin 500 mg twice daily for 7 days. The patient will also continue with prednisone 10 mg daily for 7 days. Recommend to elevate leg when sitting or lying. Patient may need to limit her activities over the next several days. Patient may benefit with ZENAIDA hose in the future once her infection has resolved. Other consideration is to have patient see a vein specialist in the future to further evaluate and treat. Recommend follow-up with her PCP in 1 week to follow-up hospitalization. Patient with diabetes mellitus type 2. This is well controlled. Hemoglobin A1c 7.0. At discharge will continue with Actos 30 mg daily and saxagliptin/metformin 1 pill daily. Recommend to maintain blood sugars less than 140 fasting and less than 200 after meals. Further adjustment can be done by her her PCP. Recommend to recheck hemoglobin A1c every 3 months to monitor progress. Patient with hypertension. At discharge she will continue with lisinopril 20 mg daily. Recommend to maintain blood pressure less than 130/80. Further adjustment can be done by her PCP. Patient with hypothyroidism. At discharge patient will continue with levothyroxine 88 mcg daily. Patient with fatty liver disease and obesity. Lifestyle modification education provided. Patient would benefit with GI evaluation as an outpatient to further address. Vital Signs/Physical Exam: Temp Pulse Resp BP Pulse Ox 97.1 F 92 H 18 112/58 L 94 01/03/21 04:00 01/03/21 04:00 01/03/21 04:00 01/03/21 04:00 01/03/21 04:00 General: Alert, In no apparent distress, Oriented x3, Cooperative HEENT: Atraumatic Neck: Supple Respiratory: Clear to auscultation bilaterally, Normal air movement Cardiovascular: Normal pulses, Regular rate/rhythm Gastrointestinal: Normal bowel sounds, Soft and benign, Non-distended, No tenderness, No masses, No rebound, No guarding Musculoskeletal: No warmth, Other (No significant erythema, warmth or swelling to the left lower extremity. Some varicosities noted.) Neurological: Normal speech, Normal strength at 5/5 x4 extr, Normal tone, Normal affect Laboratory Data at Discharge: WBC 4.60 K/uL (4.3-10.9) 01/03/21 03:33 Hgb 11.5 g/dL (12.0-15.0) L 01/03/21 03:33 Hct 34.6 % (36.0-45.0) L 01/03/21 03:33 Plt Count 146 K/uL (152-406) L 01/03/21 03:33 Sodium 141 mmol/L (136-145) 01/03/21 03:33 Potassium 4.0 mmol/L (3.5-5.1) 01/03/21 03:33 BUN 11 mg/dL (7-18) 01/03/21 03:33 Creatinine 0.61 mg/dL (0.55-1.3) 01/03/21 03:33 Glucose 230 mg/dL (74-106) H 01/03/21 03:33 Magnesium Cancelled 01/03/21 05:00 Total Bilirubin 0.2 mg/dL (0.2-1.0) 01/03/21 03:33 AST 30 U/L (15-37) 01/03/21 03:33 ALT 32 U/L (12-78) 01/03/21 03:33 Alkaline Phosphatase 80 U/L (45-117) 01/03/21 03:33 Triglycerides 42 mg/dL (<150) 01/03/21 03:33 Cholesterol 164 mg/dL (<200) 01/03/21 03:33 HDL Cholesterol 59 mg/dL (40-60) 01/03/21 03:33 Cholesterol/HDL Ratio 2.78 01/03/21 03:33 Home Medications: Levothyroxine [Synthroid*] 88 mcg PO DAILY 10/15/11 Lisinopril 20 mg PO DAILY 10/15/11 Pioglitazone [Actos*] 30 mg PO DAILY 03/17/18 Saxagliptin HCl/Metformin HCl [Kombiglyze Xr 5-1,000 mg Tab] 1 tab PO DAILY 03/17/18 Amox/Clavulanate [Augmentin 500-125 mg Tab] 500 mg PO BID #14 tab 01/03/21 Lactobacillus Acidophilus [Acidophilus Lactobacilli] 1 each PO BID #14 capsule 01/03/21 predniSONE [Deltasone*] 10 mg PO DAILY #7 tab 01/03/21 New Medications: Lactobacillus Acidophilus [Acidophilus Lactobacilli] 1 each PO BID #14 capsule Amox/Clavulanate [Augmentin 500-125 mg Tab] 500 mg PO BID #14 tab predniSONE [Deltasone*] 10 mg PO DAILY #7 tab Physician Discharge Instructions: Patient was admitted for further evaluation and treatment of recurrent left lower extremity cellulitis. The patient was started on IV antibiotics. There was some question of inflammatory process. Patient was also given steroids. Patient has significantly improved with treatment. Patient previously on Bactrim. Venous Doppler shows no DVT. Procalcitonin negative. Patient stable for discharge. At discharge patient will continue with Augmentin 500 mg twice daily for 7 days. The patient will also continue with prednisone 10 mg daily for 7 days. Patient will also be given lactobacillus 1 pill twice daily. Recommend to elevate leg when sitting or lying. Patient may need to limit her activities over the next several days. Patient may benefit with ZENAIDA hose in the future once her infection has resolved. Other consideration is to have patient see a vein specialist in the future to further evaluate and treat. Recommend follow-up with her PCP in 1 week to follow-up hospitalization. Patient with diabetes mellitus type 2. This is well controlled. Hemoglobin A1c 7.0. At discharge will continue with Actos 30 mg daily and saxagliptin/metformin 1 pill daily. Recommend to maintain blood sugars less than 140 fasting and less than 200 after meals. Further adjustment can be done by her her PCP. Recommend to recheck hemoglobin A1c every 3 months to monitor progress. Patient with hypertension. At discharge she will continue with lisinopril 20 mg daily. Recommend to maintain blood pressure less than 130/80. Further adjustment can be done by her PCP. Patient with hypothyroidism. At discharge patient will continue with levothyroxine 88 mcg daily. Patient with fatty liver disease and obesity. Lifestyle modification education provided. Patient would benefit with GI evaluation as an outpatient to further address. Diet: ADA Activity: Ad oneal Followup: ASHLEY MERCADO [Primary Care Provider] - Time spent managing pt's care (in minutes): 55
[2021-01-03] MEDS ORDERED: MAGNESIUM SULFATE 1 gm IVPB 1 GM/100 ML BAG IV ONE (06:25)
[2021-01-03] MEDS ORDERED: LEVOTHYROXINE SOD 0.088 MG TAB PO SCH (06:30)
[2021-01-03] MEDS: INSULIN -REGULAR HUMAN 50 UNIT/0.5 ML ML SQ SCH ×2 (08:55→11:30)
[2021-01-03] MEDS ORDERED: METFORMIN HCL PO SCH (09:00)
[2021-01-03] MEDS ORDERED: [UNRECOGNIZED DRUG - OTHER] PO SCH (09:00)
[2021-01-03] MEDS ORDERED: SAXAGLIPTIN HCL PO SCH (09:00)
[2021-01-03] MEDS ORDERED: ENOXAPARIN 40 MG/0.4 ML SQ SCH (09:00)
[2021-01-03] MEDS ORDERED: predniSONE 20 MG TAB PO SCH (09:00)
[2021-01-03] MEDS ORDERED: PIOGLITAZONE 15 MG TAB PO SCH (09:00)
[2021-01-03] MEDS ORDERED: lisinopriL 20 MG TAB PO SCH (09:00)
[2021-01-03] MEDS: CEFEPIME/SWI 1gm 10 ML IV SCH (11:02)
[2021-01-03 12:24] VITALS: BP 138/75; TEMP 97
[2021-01-03 13:21] VITALS: O2SAT 95
[2021-01-03] MEDS ORDERED: VANCOMYCIN 2 GM in NA CHLORIDE 0.9% 500 ML IVPB SCH (16:00)
== END 2021-01-03 14:10 | disposition home or self-care (01) ==
LOC: ER 14:04 → ERHOLD 19:10 → 2ND 20:06
PROVIDERS: ADMIT Family Medicine; ATTEND Family Medicine
DX: L03.116 Cellulitis of left lower limb (principal); E11.42 Type 2 diabetes mellitus with diabetic polyneuropathy; I10 Essential (primary) hypertension; E03.9 Hypothyroidism, unspecified; E78.5 Hyperlipidemia, unspecified; K76.0 Fatty (change of) liver, not elsewhere classified; I87.2 Venous insufficiency (chronic) (peripheral); Z79.899 Other long term (current) drug therapy
CPT/HCPCS: 87040 ×2; 85025 ×2; 80048; 36415; 83735; 80061; 82947 ×3; 80076; 84443; 81003; 83036; 84439; 80053; 84145 ×2; 93971; 96375; 96374; 99285; J1650; J3370; J3475; J0692; J7040; G0378 ×3; J7512

== ENCOUNTER 2021-02-19 12:11 | Emergency (ER) | payer OTHER ==
--- OUTSIDE RECORDS SUMMARY | 2021-02-19 12:13 | XMS REPORT | Continuity of Care Document ---
:1955 Author Organization [facility] t Address [address] [place] [address] Care Team Providers Name Role Phone Guera Najera Primary Care Physician [phone] Jewels Rai MD Attending Clinician Romario JULIEN Attending Clinician Unavailable Yogi HURT Attending Clinician Jacquelyn HURT Attending Clinician Jacquelyn HURT Admitting Clinician Payers Payer Name Policy Type Policy Number Effective Date Expiration Date S ource Problems Condition Condition Condition Status Onset Resolution Last Treating Co mments Source Name Details Category Date Date Treatment Clinician Date Low back Low back Problem Active [facility] deficiency deficiency [facility] Encounter Encounter Diagnosis Active [facility] - screening screening Demarcus cecil mammogram mammogram l for breast for breast Ou tpati cancer cancer ent Clinics Fatigue, Fatigue, Problem Active [facility] unspecifie unspecifie [facility] kes - d type d type [facility] Varicose Varicose Problem Active [facility] [...] 40.1 to l 44.9 in 44.9 in Outpati adult adult ent Clinics Biliary Biliary Problem Active [facility] cirrhosis cirrhosis [facility] - [facility] Varicose Varicose Problem Active [facility]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 Social History Social Habit Start Date Stop Date Quantity Comments Source History SDIA [facility] Alcohol Std Drinks Hospit al History SDIA [facility] Binge Hospital Tobacco use and 2020-12-12 2020-12-12 Never used [facility] exposure 00:00:00 00:00:00 Hospital Alcohol intake 2020-12-12 2020-12-12 Lifetime [facility] 00:00:00 00:00:00 non-drinker Hospital (finding) History SDOH 2020-12-12 2020-12-12 1 [facility] Alcohol Frequency 00:00:00 00:00:00 Hospita l Sex Ass[birth year] At [birth year] [facility] 00:00:00 00:00:00 Hospital Smoking Status Start Date Stop Date Source Never smoker [facility] Medications Ordered Filled Start Stop Current Ordering Indication Dosage Frequency Signature Comments Components Source Medication Medication Date Date Medication? Clinician (SIG) Name Name Vitamin D3 Vitamin D3 2019- No Avery [address] [facility] 12[facility]cos [facility] - 00:00: 00:00 Memoria 00 :00 [facility] ent [facility] Jardiance Jardiance 2019- No Avery [address] [facility] 12[facility] - 00:00: 00:00 Memoria 00 :00 [facility] ent [facility] Yes Avery [address] XR XR 4-10 Marcos with a [facility]ukes - 00:00: meal Memoria 00 [facility] ent [facility] No known No Methodi medications [facility] Hospita l Kombiglyze Kombiglyze Yes Avery [address] XR XR Marcos with Lukes - evening Memoria meal [facility] ent [facility] Albuterol Albuterol Yes Aveyr [address] [facility] [address] Sulfate Sulfate Marcos nebulizer [place] [facility] Levoxyl Levoxyl Yes Avery [address] [facility] [address] Marcos on an Lukes - empty Memoria stomach in l the Outpati morning ent Clinics Atorvastati Atorvastati Yes Avery [address] n Calcium n Calcium Marcos [facility] Lisinopril Lisinopril Yes Avery [address] [facility] [address] [facility]cos [facility] Jardiance Jardiance Yes Avery [address] [facility] [facility]cos [facility] Vital Signs Vital Name Observation Time Observation Value Comments Source Systolic blood 2020-12-12 19:02:00 160 mm[Hg] [facility] pressure Diastolic blood 2020-12-12 19:02:00 72 mm[Hg] [facility] pressure Heart rate 2020-12-12 19:02:00 78 /min [facility] Respiratory rate 2020-12-12 19:02:00 16 /min [facility] Oxygen saturation in 2020-12-12 19:02:00 98 /min [facility] Arterial blood by Pulse oximetry Body temperature 2020-12-12 16:28:37 36.61 Jelena [facility] Procedures Procedure Date / Time Performing Clinician Source Performed US DUPLEX VENOUS LOWER 2020-12-12 18:00:39 [facility] EXTREMITY BILATERAL HC COMPLETE BLD COUNT 2020-12-12 16:56:00 [facility] W/AUTO DIFF BASIC METABOLIC PANEL 2020-12-12 16:56:00 [facility] B NATRIURETIC PEPTIDE 2020-12-12 16:56:00 [facility] TROPONIN 2020-12-12 16:56:00 [facility] LACTIC ACID LEVEL, SEPSIS 2020-12-12 16:56:00 [facility] - NOW AND REPEAT 2X EVERY 3 HOURS ESTIMATED GFR 2020-12-12 16:56:00 [facility] ECG 12-LEAD 2020-12-12 16:45:59 [facility] ECG ED PRELIMINARY 2020-12-12 16:42:23 Kennedy Joshua [facility] INTERPRETATION Plan of Care Planned Activity Planned Date Details Comments Source Future Scheduled Test COVID-19 VACCINE (1) [facility] [code = COVID-19 VACCINE (1)] Future Scheduled Test Hepatitis C screening [facility] (procedure) [code = 440627719] Future Scheduled Test BREAST CANCER SCREENING [facility] [code = BREAST CANCER SCREENING] Future Scheduled Test COLONOSCOPY SCREENING [facility] [code = COLONOSCOPY SCREENING] Future Scheduled Test SHINGLES VACCINES (#1) [facility] [code = SHINGLES VACCINES (#1)] Future Scheduled Test 65+ PNEUMOCOCCAL Me [facility] VACCINE (1 of 1 - PPSV23) [code = 65+ PNEUMOCOCCAL VACCINE (1 of 1 - PPSV23)] Future Scheduled Test INFLUENZA VACCINE [code [facility] = INFLUENZA VACCINE] Encounters Start End Encounter Admission Attending Care Care Encounter Source Date/Time Date/Time Type Type Clinicians Facility Department ID 2020-12-12 2020-12-12 Emergency [facility], [id number] [facility] 11:31:00 14:03:[id number] 3.430.2.7 Hospit a .[id number] l .8 2020-12-12 2020-12-12 Travel 1.2.840.1 [id number] [facility] 00:00:00 00:00:[id number] 3.430.2.7 0.2.7.3.698 Ho spita .[id number] 084.8 l .8 2020-12-12 2020-12-12 [facility] [id number] [place] 00:00:00 00:00:00 KARY Garcia [facility] 2020-10-26 2020-10-26 Transition DossAkbar [id number] 00:00:00 00:00:00 of Care Kerry Etienney 350.1.13.10 [place] 4.2.7.2.686 [id number] 2020-10-20 2020-10-25 [facility] Jayy Calix [facility] [id number] 08:20:00 16:35:00 Encounter Armin Valladares [facility] 350.1.13.10 Clear 4.2.7.2.686 Che[place] [id number] [facility] 113 ([facility]) 2020-02-09 2020-02-09 [facility] [id number] 15:48:00 15:48:00 [facility] s [facility] ent [facility] 2018-12-23 2018-12-23 [facility] [id number] 10:45:00 10:45:00 [facility] s [facility] ent [facility] 2018-12-01 2018-12-01 [facility] [id number] 14:37:00 14:37:00 t [facility] s [facility] 2018-09-22 2018-09-22 [facility] [id number] 12:01:00 12:01:00 [facility] s [facility] Results Test Description Test Time Test Comments Results Result Comments Source ECG 12 lead 2020-12-14 20:47:11 Test Item Value Reference Range Interpretation Comme nts Ventricular rate (test code = 253) Atrial rate (test code = 255) NE interval (test code = 266) QRSD interval (test code = 260) QT interval (test code = 264) QTC interval (test code = 265) P axis 1 (test code = 267) QRS axis 1 (test code = 268) T wave axis (test code = 270) EKG impression (test code = 273) Normal sinus rhythm-Right bundle b ranch block-Left anterior fascicular block-^^^ Bifascicular block ^^^-Abnormal ECG-No previous ECGs available- [facility] duplex venous lower [id number] 18:09:41 EXAMINATION: US DUPLEX VENOUS LOWER EXTREMITY BILATERAL CLINICAL HISTORY: 65 years Female Bilateral leg edema COMPARISON: None. TECHNIQUE: Grayscale, color Doppler, and spectral waveform analysisof the bilateral lower extremity deep venous systems was performed. The bilateral common femoral, superficial femoral, proximal deep femoral, greater saphenous, and popliteal veins were evaluated. The calf vessels were also evaluated. FINDINGS:The bilateral common femoral, superficial femoral, and popliteal veins are compressible. They demonstrate normal venous waveforms and response to augmentation.There is flow in the visualized calf veins. There is no evidence of a popliteal or Carlos's cyst. IMPRESSION: Normal bilateral lower extremity venous Doppler examination. There is no evidence of deep venous thrombosis. Interface, Radiology Results 12/12/2020 1:12 PM CDT EXAMINATION: US DUPLEX VENOUS LOWER EXTREMITY BILATERALC LINICAL HISTORY: 65 years Female Bilateral leg edemaCOMPARISON: None.TECHNIQUE: Grayscale, color Doppler, and spectral waveform analysis of the bilateral lower extremity deep venous systems was performed. The bilateral common femoral, superficial femoral, proximal deep femoral, greater saphenous, and popliteal veins were evaluated. The calf vessels were also evaluated.FINDINGS:The bilateral common femoral, superficial femoral, and popliteal veins are compressible. They demonstrate normal venouswaveforms and response to augmentation. There is flow in the visualized calf veins. There is no evidence of a popliteal or Carlos's cyst.IMPRESSION:Normal bilateral lower extremity venous Doppler examination. There is no evidence of deep venous thrombosis[facility] Preliminary Interpretation - Not an Order 2020-12-12 16:42:23Kennedy Joshua NP 12/12/2020 8:53 [facility] ED Preliminary Interpretation - Not an OrderPerformed by: Kennedy Joshua NPAuthorized by: Kary Rai MD ECG reviewed by ED Physician in the absence of a manager food beverage: yes Rate: ECG rate: 89 ECG rate assessment: normal Rhythm: Rhythm: sinus rhythm Ectopy: Ectopy: none QRS: QRS axis: Normal QRS intervals: NormalT waves: T waves: non-specific and inverted Inverted: III and [id number] findings: Other findings comment: [facility]
[2021-02-19 16:40] LABS: Absolute Lymphocytes (CBC) 1.6 K/uL (0.7-4.9); Basophils % 0.2 % (0-1.3); Hematocrit 37.7 % (36.0-45.0); Lymphocytes % 22.4 % (15.3-44.8); MPV 8.7 fL (7.6-11.3); Protime INR 1.1; RBC Red Blood Cell Count 4.26 M/uL (3.86-4.86)
[2021-02-19 16:47] LABS: ALT/SGPT 33 U/L (12-78); AST/SGOT 23 U/L (15-37); Albumin 3.9 g/dL (3.4-5.0); Alkaline Phosphatase 97 U/L (45-117); BUN Blood Urea Nitrogen 11 mg/dL (7-18); Bicarbonate 28 mmol/L (21-32); Bilirubin Direct 0.1 mg/dL (0-0.2); Bilirubin Total 0.5 mg/dL (0.2-1.0); Glucose Level 118 mg/dL (74-106); Magnesium 1.6 mg/dL (1.8-2.4); NT PRO-BNP 152 pg/mL (<125); Potassium 3.8 mmol/L (3.5-5.1); Protein, Total 8.3 g/dL (6.4-8.2); Sodium Level 139 mmol/L (136-145); Troponin (Emerg Dept Use Only) < 0.02 ng/mL (0.0-0.045)
--- NOTE | 2021-02-19 17:23 | EDPHYS ---
Physician Documentation [facility] Name: Sandra Rogers Age: 65 yrs Sex: Female : 1955 Arrival Date: 02/19/2021 Time: 12:58 Bed 6 Private MD: ED Physician Kris Marcos HPI: 02/19 17:08 This 65 yrs old Female presents to ER via Wheelchair with complaints of Arm sp3 Pain. 17:08 65-year-old female with history of diabetes and hypertension presents with left sp3 shoulder and neck pain subsequent to straining while putting on her stockings yesterday. Patient states that she was putting her stockings on in the process pulled too hard and felt a "pull" in her neck and left shoulder. There was no direct trauma. Patient denies chest pain, shortness of breath, back pain, abdominal pain, nausea, vomiting, diarrhea, pain into the left arm, jaw pain, fever, URI symptoms, or any other ROS at this time. Remainder of ROS systems are negative.. Historical: - Allergies: 13:02 No Known Allergies; aa5 - Home Meds: 13:02 levothyroxine 100 mcg cap 1 cap once daily [Active]; lisinopril 20 mg Oral tab 1 tab aa5 once daily [Active]; metformin 1,000 mg Oral tab 1 tab 2 times per day [Active]; - PMHx: 13:02 fatty liver; Hypertension; Hypothyroidism; PERIPHERAL NEUROPATHY; Diabetes - NIDDM; aa5 - Immunization history:: Client reports receiving the 2nd dose of the Covid vaccine. - Social history:: Smoking status: Patient denies any tobacco usage or history of. ROS: 17:09 Constitutional: Negative for fever, chills, and weight loss, Eyes: Negative for injury, sp3 pain, redness, and discharge, ENT: Negative for injury, pain, and discharge, Respiratory: Negative for shortness of breath, cough, wheezing, and pleuritic chest pain, Abdomen/GI: Negative for abdominal pain, nausea, vomiting, diarrhea, and constipation, Back: Negative for injury and pain, MS/Extremity: Negative for injury and deformity, Skin: Negative for injury, rash, and discoloration, Neuro: Negative for headache, weakness, numbness, tingling, and seizure. 17:09 Cardiovascular: Negative for chest pain, palpitations, and edema. 17:09 Neck: Positive for tenderness. 17:09 MS/extremity: Positive for Patient states it is painful to raise and move shoulder on the left side. Pain is also present on neck movement.. Exam: 17:10 Constitutional: This is a well developed, well nourished patient who is awake, alert, sp3 and in no acute distress. Head/Face: Normocephalic, atraumatic. Eyes: Pupils equal round and reactive to light, extra-ocular motions intact. Lids and lashes normal. Conjunctiva and sclera are non-icteric and not injected. Cornea within normal limits. Periorbital areas with no swelling, redness, or edema. ENT: Nares patent. No nasal discharge, no septal abnormalities noted. External auditory canals are clear. Oropharynx with no redness, swelling, or masses, exudates, or evidence of obstruction, uvula midline. Mucous membranes moist. Cardiovascular: Regular rate and rhythm with a normal S1 and S2. No gallops, murmurs, or rubs. Normal PMI, no JVD. No pulse deficits. Respiratory: Lungs have equal breath sounds bilaterally, clear to auscultation and percussion. No rales, rhonchi or wheezes noted. No increased work of breathing, no retractions or nasal flaring. Abdomen/GI: Soft, non-tender, with normal bowel sounds. No distension or tympany. No guarding or rebound. No evidence of tenderness throughout. Back: No spinal tenderness. No costovertebral tenderness. Full range of motion. Skin: Warm, dry with normal turgor. Normal color with no rashes, no lesions, and no evidence of cellulitis. MS/ Extremity: Pulses equal, no cyanosis. Neurovascular intact. Full, normal range of motion. Neuro: Awake and alert, GCS 15, oriented to person, place, time, and situation. Cranial nerves II-XII grossly intact. Motor strength 5/5 in all extremities. Sensory grossly intact. Cerebellar exam normal. Normal gait. Psych: Awake, alert, with orientation to person, place and time. Behavior, mood, and affect are within normal limits. 17:10 Chest/axilla: Patient has pain to palpation on the trapezius and sternocleidomastoid muscles as well as her deltoid muscle. There is pain on abduction but full range of motion is possible. Distal neuro and vascular exams are normal including pulse and capillary refill on the left extremity.. 17:18 ECG was reviewed by the Attending Physician. Normal sinus rhythm at 80 bpm with normal sp3 intervals right bundle branch block of unknown age nonspecific ST/T changes. Vital Signs: 13:00 BP 140 / 69; Pulse 84; Resp 18 S; Temp 98.0(TE); Pulse Ox 97% on R/A; Weight 108.86 kg aa5 (R); Height 5 ft. 0 in. (152.40 cm) (R); Pain 8/10; 17:30 BP 147 / 80; Pulse 82; Resp 20; Pulse Ox 98% on R/A; kg 13:00 Body Mass Index 46.87 (108.86 kg, 152.40 cm) aa5 MDM: 15:31 Patient medically screened. sp3 17:15 Data reviewed: vital signs, nurses notes, lab test result(s), EKG, radiologic studies. sp3 ED course: 65-year-old female with likely muscle strain on the left neck and shoulder. At this time I am not highly suspicious for acute coronary syndrome, pulmonary [place], sepsis, TAD, AAA, pneumonia, Covid, or any other critical illness at this time. Will await remainder of work-up and if negative will go home. Patient states she has zero chest pain or back pain and has no history of cardiac issues. She is okay with the plan and we will proceed from there.. 17:20 ED course: Chest x-ray demonstrates no acute findings, mild cardiomegaly, no pulmonary sp3 edema or signs of infection. At this point with clinical exam coupled with laboratory data, radiology, and EKG, we will discharge patient home at this time. Patient is getting ketorolac IV. Clinical exam still supports musculoskeletal injury and history supports that given the acuity and mechanism of injury.. 02/19 15:35 Order name: Basic Metabolic Panel sp3 02/19 15:35 Order name: CBC with Diff sp3 02/19 15:35 Order name: LFT's sp3 02/19 15:35 Order name: Magnesium sp3 02/19 15:35 Order name: NT PRO-BNP sp3 02/19 15:35 Order name: PT-INR sp3 02/19 15:35 Order name: Troponin (emerg Dept Use Only) sp3 02/19 16:48 Order name: Basic Metabolic Panel; Complete Time: 17:17 EDMS 02/19 16:48 Order name: Liver (Hepatic) Function; Complete Time: 17:17 EDMS 02/19 16:48 Order name: Troponin (Emerg Dept Use Only); Complete Time: 17:17 EDMS 02/19 16:48 Order name: NT PRO-BNP; Complete Time: 17:17 EDMS 02/19 16:48 Order name: Magnesium; Complete Time: 17:17 EDMS 02/19 16:53 Order name: CBC with Automated Diff; Complete Time: 17:17 EDMS 02/19 17:10 Order name: Protime (+INR); Complete Time: 17:17 EDMS 02/19 13:05 Order name: EKG Strip; Complete Time: 13:05 aa5 02/19 15:35 Order name: XRAY Chest (1 view) sp3 02/19 15:35 Order name: EKG; Complete Time: 21:16 sp3 02/19 15:35 Order name: Cardiac monitoring; Complete Time: 16:06 sp3 02/19 15:35 Order name: EKG - Nurse/Tech; Complete Time: 16:06 sp3 02/19 15:35 Order name: IV Saline Lock; Complete Time: 16:06 sp3 02/19 15:35 Order name: Labs collected and sent; Complete Time: 16:06 sp3 02/19 15:35 Order name: O2 Per Protocol; Complete Time: 16:06 sp3 02/19 15:35 Order name: O2 Sat Monitoring; Complete Time: 16:06 sp3 Administered Medications: 17:29 Drug: Ketorolac 30 mg Route: IVP; Site: right antecubital; kg 17:44 Follow up: Response: No adverse reaction kg Disposition Summary: 02/19/21 17:22 Discharge Ordered Location: Home sp3 Condition: Stable sp3 Diagnosis - Strain of other muscles, fascia and tendons at shoulder and upper arm level, left sp3 arm Discharge Instructions: - Discharge Summary Sheet sp3 - Muscle Strain sp3 Forms: - Medication Reconciliation Form sp3 - Thank You Letter sp3 - Antibiotic Education sp3 - Prescription Opioid Use sp3 Prescriptions: - Diclofenac Sodium 75 mg Oral tablet,delayed release (DR/EC) - take 1 tablet by ORAL route 2 times per day; 15 tablet; Refills: 0, Product sp3 Selection Permitted Signatures: Dispatcher [employer] Mine Mcmillan RN RN aa5 Shelby Grider RN RN kg Kris Marcos MD MD sp3 Corrections: (The following items were deleted from the chart) 13:03 13:02 PMHx: Diabetes - IDDM; aa5 aa5
--- NOTE | 2021-02-19 17:23 | ER ---
Nurse's Notes [facility] Name: Sandra Rogers Age: 65 yrs Sex: Female : 1955 Arrival Date: 02/19/2021 Time: 12:58 Bed 6 Private MD: Diagnosis: Strain of other muscles, fascia and tendons at shoulder and upper arm level, left arm Presentation: 02/19 13:00 Chief complaint: Patient states: left arm pain since 0100 today. Pt denies injury, aa5 denies chest pain, denies SOB. Coronavirus screen: At this time, the client does not indicate any symptoms associated with coronavirus-19. Ebola Screen: Patient negative for fever greater than or equal to 101.5 degrees Fahrenheit, and additional compatible Ebola Virus Disease symptoms. Initial Sepsis Screen: Does the patient meet any 2 criteria? No. Patient's initial sepsis screen is negative. Does the patient have a suspected source of infection? No. Patient's initial sepsis screen is negative. Risk Assessment: Do you want to hurt yourself or someone else? Patient reports no desire to harm self or others. Onset of symptoms was February 2021. 13:00 Method Of Arrival: Wheelchair aa5 13:00 Acuity: STARR 3 aa5 Triage Assessment: 17:34 General: Appears in no apparent distress. Behavior is calm, cooperative, appropriate kg for age, quiet. Pain: Complains of pain in Left shoulder Pain currently is 10 out of 10 on a pain scale. at worst was 10 out of 10 on a pain scale. level that patient reports is acceptable is 5 out of 10 on a pain scale. Quality of pain is described as aching, tender. Musculoskeletal: Parent/caregiver report the patient having pain in Left shoulder. Historical: - Allergies: 13:02 No Known Allergies; aa5 - Home Meds: 13:02 levothyroxine 100 mcg cap 1 cap once daily [Active]; lisinopril 20 mg Oral tab 1 tab aa5 once daily [Active]; metformin 1,000 mg Oral tab 1 tab 2 times per day [Active]; - PMHx: 13:02 fatty liver; Hypertension; Hypothyroidism; PERIPHERAL NEUROPATHY; Diabetes - NIDDM; aa5 - Immunization history:: Client reports receiving the 2nd dose of the Covid vaccine. - Social history:: Smoking status: Patient denies any tobacco usage or history of. Screenin:30 Abuse screen: Denies threats or abuse. Denies injuries from another. Nutritional kg screening: No deficits noted. Tuberculosis screening: No symptoms or risk factors identified. Fall Risk Fall in past 12 months (25 points). Secondary diagnosis (15 points) impaired mobility, IV access (20 points). Ambulatory Aid- None/Bed Rest/Nurse Assist (0 pts). Gait- Impaired (20 pts.). Mental Status- Oriented to own ability (0 pts). Total Arriola Fall Scale indicates Low Risk Score (25-44 pts). Fall prevention measures have been instituted. Side Rails Up X 2 Placed close to Nursing Station 1:1 attendant Assigned to Pt. Frequent Obs/Assesments occuring Family Present and informed to notify staff if they need to leave bedside As available Patient and Family Educated on Fall Prevention Program and strategies. Assessment: 17:43 General: Appears uncomfortable, Behavior is calm, cooperative, appropriate for age. kg Pain: Complains of pain in Left shoulder. Neuro: No deficits noted. Cardiovascular: No deficits noted. Vital Signs: 13:00 BP 140 / 69; Pulse 84; Resp 18 S; Temp 98.0(TE); Pulse Ox 97% on R/A; Weight 108.86 kg aa5 (R); Height 5 ft. 0 in. (152.40 cm) (R); Pain 8/10; 17:30 BP 147 / 80; Pulse 82; Resp 20; Pulse Ox 98% on R/A; kg 13:00 Body Mass Index 46.87 (108.86 kg, 152.40 cm) aa5 ED Course: 12:58 Patient arrived in ED. aa5 13:00 Arm band placed on. aa5 13:02 Triage completed. aa5 13:10 EKG completed in triage. Results shown to MD. aa5 15:15 Kris Marcos MD is Attending Physician. sp3 15:36 Shelby Grider, WILY is Primary Nurse. kg 17:35 No provider procedures requiring assistance completed. IV discontinued, intact, kg bleeding controlled, No redness/swelling at site. Pressure dressing applied. Administered Medications: 17:29 Drug: Ketorolac 30 mg Route: IVP; Site: right antecubital; kg 17:44 Follow up: Response: No adverse reaction kg Outcome: 17:22 Discharge ordered by . sp3 17:35 Discharged to home via wheelchair. kg 17:35 Condition: good 17:35 Discharge instructions given to patient, family, Instructed on discharge instructions, follow up and referral plans. Demonstrated understanding of instructions, follow-up care, medications, Prescriptions given X 1. 17:45 Patient left the ED. kg Signatures: Mine Sutton RN RN aa5 Shelby Grider RN RN kg Kris Marcos MD MD sp3 Corrections: (The following items were deleted from the chart) 13:03 13:02 PMHx: Diabetes - IDDM; aa5 aa5
[2021-02-19] MEDS ORDERED: KETOROLAC 30 MG/ML INJ ONE (17:50)
--- NOTE | 2021-02-19 17:54 | RAD REPORT ---
EXAM DESCRIPTION: RAD - Chest Single View - 02/19/2021 5:07 pm CLINICAL HISTORY: chest pain COMPARISON: Chest Pa And Lat (2 Views) dated 09/25/2018; Chest Single View dated 03/28/2018; Chest Si ngle View dated 03/16/2018; Chest Pa And Lat (2 Views) dated 09/15/2016 FINDINGS: Lines: None. Lungs: No evidence of edema or pneumonia. Pleural: No significant pleural effusions or pneumothorax. Cardiac: Cardiomegaly. Bones: No acute fractures. Other: IMPRESSION: No acute cardiopulmonary disease.
[2021-02-19 19:28] VITALS: TEMP 98
[2021-02-19 19:30] VITALS: BP 147/80; O2SAT 98
--- NOTE | 2021-02-21 11:00 | EKG ---
Test Date: 2021-02-19 Test Time: 13:12:28 Environmental Science Professor: DONALD MEASUREMENT RESULTS: Intervals: Rate: 79 HI: 160 QRSD: 142 QT: 404 QTc: 463 [place]: P: 40 HI: 160 QRS: -81 T: 11 INTERPRETIVE STATEMENTS: Normal sinus rhythm Right bundle branch block Left anterior fascicular block Bifascicular block Abnormal ECG No previous ECG available for comparison Electronically Signed On 02-21-21 10:54:35 CDT by Masood Mauricio
== END 2021-02-19 17:45 | disposition home or self-care (01) ==
LOC: ER 12:11
DX: S46.812A Strain of other muscles, fascia and tendons at shoulder and upper arm level, left arm, initial encounter (principal); I10 Essential (primary) hypertension; E03.9 Hypothyroidism, unspecified; E11.42 Type 2 diabetes mellitus with diabetic polyneuropathy
CPT/HCPCS: 36415; 71045; 80048; 80076; 83735; 83880; 84484; 85025; 85610; 93005; 96374; 99283